=== PATIENT | male | born 1960 | race African-American/Black ===

== ENCOUNTER 2022-11-01 21:34 | Observation (INO) | payer OTHER ==
[2022-11-01 21:52] VITALS: BMI 25.8
[2022-11-01] MEDS ORDERED: LACTATED RINGERS SOLUTION 1000 ML INFUS.BAG IV ONE (21:58)
[2022-11-01] MEDS ORDERED: SODIUM CHLORIDE 0.9% 1000 ML INFUS.BAG IV ONE (21:58)
[2022-11-01 22:40] LABS: HEMATOCRIT 39.1 % (35.4-49); HEMOGLOBIN 13.1 GM/dL (11.7-16.9); MCH 29.3 pg (25.7-33.7); MCHC 33.6 g/dl (32.0-35.9); MEAN CELL VOLUME 87.1 fl (80-96); MEAN PLT VOLUME 7.9 fl (7.5-11.1); PLATELET COUNT 344 10^3/uL (134-434); RBC 4.49 M/mm3 (4.00-5.60); RDW 18.1 % (11.9-15.9); WHITE BLOOD COUNT 7.2 K/mm3 (4.0-10.0)
[2022-11-01 22:43] LABS: INR 1.17 (0.83-1.09); PROTHROMBIN TIME (PATIENT) 13.5 SEC (9.7-13.0)
[2022-11-01 22:46] LABS: ACTIVATED PTT 85.6 SECONDS (25.2-36.5)
[2022-11-01 23:01] LABS: CHLORIDE 113 mmol/L (98-107); POTASSIUM 3.8 mmol/L (3.5-5.1); SODIUM 150 mmol/L (136-145)
[2022-11-01 23:04] LABS: CALCIUM 11.2 mg/dL (8.5-10.1)
[2022-11-01 23:05] LABS: ALBUMIN 3.8 g/dl (3.4-5.0); ANION GAP 4 MMOL/L (8-16); BLOOD UREA NITROGEN 46.4 mg/dL (7-18); CO2 33 mmol/L (21-32)
[2022-11-01 23:08] LABS: CREATININE 1.5 mg/dL (0.55-1.3); SGOT/AST 13 U/L (15-37); SGPT/ALT 36 U/L (13-61)
[2022-11-01 23:10] LABS: BILIRUBIN,TOTAL 0.4 mg/dL (0.2-1); TOT PROT 8.1 g/dl (6.4-8.2)
[2022-11-01 23:11] LABS: ALK PHOS 92 U/L (45-117)
[2022-11-01 23:13] LABS: GLUCOSE,RANDOM 27 mg/dL (74-106)
[2022-11-01] MEDS ORDERED: DEXTROSE 50%-WATER 25 GM/50 ML DISP.SYRIN ONE (23:14)
[2022-11-01] MEDS ORDERED: DEXTROSE 50%-WATER - 25 GM/50 ML VIAL IVPUSH ONE (23:14)
[2022-11-01 23:24] LABS: ANISOCYTOSIS 1+; MACROCYTOSIS 0; PLATELET ESTIMATE NORMAL
[2022-11-02] MEDS ORDERED: DEXTROSE 5%-WATER - 1,000 ML IV SCH (00:45)
[2022-11-02 01:49] LABS: EPI CELLS 9 /uL (0-25.1); HYALINE CASTS 0 /uL (0-3.1); URINE APPEARANCE CLEAR; URINE BACTERIA >9,000 /uL (0-1359); URINE BILIRUBIN NEGATIVE (NEGATIVE); URINE COLOR YELLOW; URINE GLUCOSE (UA) NEGATIVE (NEGATIVE); URINE KETONE TRACE (NEGATIVE); URINE LEUK ESTERASE TRACE (NEGATIVE); URINE NITRITE NEGATIVE (NEGATIVE); URINE PROTEIN 2+ (NEGATIVE); URINE RBC 6 /uL (0-23.9); URINE WBC 54 /uL (0-25.8)
[2022-11-02 06:44] LABS: BASO % 1.1 % (0-2.0); EOS % 0.9 % (0-4.5); HEMATOCRIT 40.9 % (35.4-49); HEMOGLOBIN 13.6 GM/dL (11.7-16.9); LYMPH % 41.9 % (8-40); MCH 29.4 pg (25.7-33.7); MCHC 33.2 g/dl (32.0-35.9); MEAN CELL VOLUME 88.7 fl (80-96); MEAN PLT VOLUME 7.9 fl (7.5-11.1); MONO % 8.3 % (3.8-10.2); NEUT % 47.8 % (42.8-82.8); PLATELET COUNT 264 10^3/uL (134-434); RBC 4.61 M/mm3 (4.00-5.60); WHITE BLOOD COUNT 3.4 K/mm3 (4.0-10.0)
[2022-11-02 06:56] LABS: POTASSIUM 4.1 mmol/L (3.5-5.1)
[2022-11-02 07:02] LABS: ALBUMIN 3.9 g/dl (3.4-5.0); BLOOD UREA NITROGEN 44.2 mg/dL (7-18); CALCIUM 10.8 mg/dL (8.5-10.1)
[2022-11-02 07:04] LABS: CREATININE 1.5 mg/dL (0.55-1.3)
[2022-11-02 07:06] LABS: BILIRUBIN,TOTAL 0.5 mg/dL (0.2-1); TOT PROT 8.4 g/dl (6.4-8.2)
[2022-11-02 09:10] VITALS: RESP 18
[2022-11-02] MEDS: HEPARIN NA (PORCINE) 5,000 UNITS/ML 1ML VIAL SQ SCH ×2 (09:17→22:30)
[2022-11-02] MEDS ORDERED: TIMOLOL MALEATE 0.5% GFS OPHTHALMIC SOLN 5 ML BOTTLE OU SCH (10:00)
[2022-11-02] MEDS ORDERED: SODIUM CHLORIDE 0.45% 1,000 ML IV SCH (15:15)
[2022-11-02 17:15] VITALS: TEMP 98.2
[2022-11-02] MEDS ORDERED: LATANOPROST 0.005% OPHTH SOLN 2.5ML BOTTLE OU SCH (22:00)
[2022-11-02 23:53] VITALS: BP 117/68; PULSE 67
== END 2022-11-02 23:00 ==
LOC: JER 21:34 → JERBED 21:52 → UNDOADMOB 21:52 → INTOOBSV 21:52 → J4S 11-02 03:15 → JERBED 11-02 03:15 → J4S 11-02 11:48
PROVIDERS: ADMIT Internal Medicine; ATTEND Internal Medicine
PROC: 3E0337Z Introduction of Electrolytic and Water Balance Substance into Peripheral Vein, Percutaneous Approach (ICD-10-PCS; principal; 2022-11-02)
PROC: 0DP64UZ Removal of Feeding Device from Stomach, Percutaneous Endoscopic Approach (ICD-10-PCS; 2022-11-02)
PROC: 0DH64UZ Insertion of Feeding Device into Stomach, Percutaneous Endoscopic Approach (ICD-10-PCS; 2022-11-02)
DX: Z43.1 Encounter for attention to gastrostomy (principal); F01.50 Vascular dementia, unspecified severity, without behavioral disturbance, psychotic disturbance, mood disturbance, and anxiety; E11.9 Type 2 diabetes mellitus without complications; E78.5 Hyperlipidemia, unspecified; I21.4 Non-ST elevation (NSTEMI) myocardial infarction; E83.52 Hypercalcemia; E87.0 Hyperosmolality and hypernatremia
CPT/HCPCS: 0241U-QW; 36415; 49440; 71045-TC-FY; 74018-TC-FY; 80053; 81003; 82436; 82962; 83930; 84133; 84300; 84443; 85025; 85610; 85730; 86850; 86900; 86901; 87086; 87186; 93005; 93010; 96361; 96365; 96372; 96375; 99285-25; C1769; C1887; G0378; J1644

== ENCOUNTER 2023-07-02 17:10 | Inpatient (IN) | payer OTHER ==
[2023-07-02 18:40] LABS: BASO % 0.2 % (0-2.0); EOS % 0.5 % (0-4.5); HEMATOCRIT 42.1 % (35.4-49); HEMOGLOBIN 13.6 GM/dL (11.7-16.9); LYMPH % 10.4 % (8-40); MCH 29.1 pg (25.7-33.7); MCHC 32.2 g/dl (32.0-35.9); MEAN CELL VOLUME 90.2 fl (80-96); MEAN PLT VOLUME 9.2 fl (7.5-11.1); MONO % 13.2 % (3.8-10.2); NEUT % 75.7 % (42.8-82.8); PLATELET COUNT 236 10^3/uL (134-434); RBC 4.67 M/mm3 (4.00-5.60); RDW 14.2 % (11.9-15.9); WHITE BLOOD COUNT 8.6 K/mm3 (4.0-10.0)
[2023-07-02] MEDS: LACTATED RINGERS SOLUTION 1000 ML INFUS.BAG IV ONE ×2 (18:44→18:59)
[2023-07-02 18:46] LABS: INR 1.17 (0.83-1.09); PROTHROMBIN TIME (PATIENT) 13.6 SEC (9.7-13.0)
[2023-07-02 18:47] LABS: VENOUS BASE EXCESS -1.9 mmol/L (-2-2); VENOUS O2 SATURATION 37.5 % (70-80); VENOUS PCO2 50.2 mmHg (38-52); VENOUS PH 7.315 (7.310-7.410)
[2023-07-02 18:49] LABS: ACTIVATED PTT 60.9 SECONDS (25.2-36.5)
[2023-07-02] MEDS: SODIUM CHLORIDE 0.9% 500 ML INFUS.BAG IV ONE (18:59)
[2023-07-02 19:01] LABS: CHLORIDE 122 mmol/L (98-107); POTASSIUM 4.7 mmol/L (3.5-5.1)
[2023-07-02] MEDS ORDERED: PIPERACILLIN/TAZOB 3.375 GM 3.375 GM/50 ML BAG IVPB ONE (19:01)
[2023-07-02 19:03] LABS: CALCIUM 10.4 mg/dL (8.5-10.1)
[2023-07-02 19:04] LABS: ALBUMIN 3.5 g/dl (3.4-5.0); CO2 28 mmol/L (21-32); GLUCOSE,RANDOM 70 mg/dL (74-106)
[2023-07-02 19:07] LABS: SGOT/AST 41 U/L (15-37); SGPT/ALT 44 U/L (13-61)
[2023-07-02 19:08] LABS: BILIRUBIN,TOTAL 0.3 mg/dL (0.2-1)
[2023-07-02 19:09] LABS: TOT PROT 7.7 g/dl (6.4-8.2)
[2023-07-02 19:10] LABS: ALK PHOS 126 U/L (45-117)
[2023-07-02] MEDS: PIPERACILLIN/TAZOB 3.375 GM 3.375 GM in DEXTROSE 5%-WATER - 50 ML IVPB ONE (19:15)
[2023-07-02 19:18] LABS: ANION GAP 13 mmol/L (4-13); BLOOD UREA NITROGEN 184.9 mg/dL (7-18); CREATININE 9.1 mg/dL (0.55-1.3); LACTIC ACID 2.8 mmol/L (0.4-2.0); SODIUM 163 mmol/L (136-145)
[2023-07-02] MEDS ORDERED: VANCOMYCIN 1 GRAM (PRE-DOCKED) 1,000 MG/250 ML BAG IVPB ONE (19:47)
[2023-07-02] MEDS: DEXTROSE 5%-0.45% SALINE 1,000 ML IV SCH (20:20)
[2023-07-02] MEDS: VANCOMYCIN 1,000 MG in DEXTROSE 5%-WATER - 250 ML IVPB ONE (20:20)
[2023-07-02] MEDS: SODIUM CHLORIDE 0.45% 1,000 ML IV SCH (20:27)
[2023-07-03] MEDS ORDERED: SODIUM PHOSPHATE/NA BIPHOS 133 ML ENEMA PR PRN (05:51)
[2023-07-03] MEDS ORDERED: PIPERACILLIN/TAZOB 3.375 GM 3.375 GM/50 ML BAG IVPB ONE (05:54)
[2023-07-03] MEDS: PIPERACILLIN/TAZOB 3.375 GM 3.375 GM in DEXTROSE 5%-WATER - 50 ML IVPB ONE (06:10)
[2023-07-03 06:56] LABS: HEMATOCRIT 34.8 % (35.4-49); HEMOGLOBIN 11.3 GM/dL (11.7-16.9); MCH 29.7 pg (25.7-33.7); MCHC 32.5 g/dl (32.0-35.9); MEAN CELL VOLUME 91.4 fl (80-96); MEAN PLT VOLUME 9.7 fl (7.5-11.1); PLATELET COUNT 187 10^3/uL (134-434); RBC 3.81 M/mm3 (4.00-5.60); RDW 14.4 % (11.9-15.9); WHITE BLOOD COUNT 8.6 K/mm3 (4.0-10.0)
[2023-07-03 07:15] LABS: CHLORIDE 123 mmol/L (98-107); POTASSIUM 4.8 mmol/L (3.5-5.1); SODIUM 157 mmol/L (136-145)
[2023-07-03 07:21] LABS: ANION GAP 13 mmol/L (4-13); CALCIUM 9.1 mg/dL (8.5-10.1); CO2 21 mmol/L (21-32); GLUCOSE,RANDOM 168 mg/dL (74-106); MAGNESIUM 3.2 mg/dL (1.8-2.4)
[2023-07-03 07:24] LABS: PHOSPHOROUS 5.9 mg/dL (2.5-4.9)
[2023-07-03 07:51] LABS: BLOOD UREA NITROGEN 176.1 mg/dL (7-18); CREATININE 9.1 mg/dL (0.55-1.3)
[2023-07-03 10:10] LABS: ANISOCYTOSIS 0; HELMET CELLS 0; HOWELL-JOLLY BODIES 0; MACROCYTOSIS 0; OVALOCYTE 0; ROULEAU 0; SICKELED CELLS 0; TARGET CELLS 0; TEAR DROP CELLS 0; TOXIC GRANULATION 0
[2023-07-03 10:52] LABS: EPI CELLS >36 /uL (0-25.1); HYALINE CASTS 9 /uL (0-3.1); PH,URINE 5.5 (5.0-8.0); URINE APPEARANCE CLOUDY; URINE BACTERIA 18 /uL (0-1359); URINE BILIRUBIN NEGATIVE (NEGATIVE); URINE COLOR YELLOW; URINE GLUCOSE (UA) NEGATIVE (NEGATIVE); URINE KETONE NEGATIVE (NEGATIVE); URINE LEUK ESTERASE TRACE (NEGATIVE); URINE NITRITE NEGATIVE (NEGATIVE); URINE PROTEIN 2+ (NEGATIVE); URINE RBC 17 /uL (0-23.9); URINE UROBILINOGEN 0.2 mg/dL (0.2-1.0); URINE WBC 121 /uL (0-25.8)
[2023-07-03] MEDS: TIMOLOL MALEATE 0.5% GFS OPHTHALMIC SOLN 5 ML BOTTLE OU SCH (12:03)
[2023-07-03] MEDS: DEXTROSE 5%-0.45% SALINE 1,000 ML IV SCH (14:00)
[2023-07-03] MEDS: SODIUM CHLORIDE 500 ML IV STA (14:26)
[2023-07-03 16:12] LABS: GAMMA GLUTAMYL TRANSPEPTIDASE 32 U/L (5-85)
[2023-07-03] MEDS: SODIUM CHLORIDE 0.45% 1,000 ML IV SCH (17:11)
[2023-07-03] MEDS ORDERED: PIPERACILLIN/TAZOB 2.25 GM 2.25 GM/50 ML BAG IVPB ONE (17:13)
[2023-07-03] MEDS: PIPERACILLIN/TAZOB 2.25 GM 2.25 GM in DEXTROSE 5%-WATER - 50 ML IVPB SCH (17:24)
[2023-07-03] MEDS ORDERED: PIPERACILLIN/TAZOB 3.375 GM 3.375 GM in DEXTROSE 5%-WATER - 50 ML IVPB SCH (18:00)
[2023-07-03] MEDS ORDERED: PIPERACILLIN/TAZOB 2.25 GM 2.25 GM in DEXTROSE 5%-WATER - 50 ML IVPB SCH (18:00)
[2023-07-03] MEDS: LATANOPROST 0.005% OPHTH SOLN 2.5ML BOTTLE OU SCH (23:10)
[2023-07-04 08:06] LABS: BASO % 0.2 % (0-2.0); EOS % 0.4 % (0-4.5); HEMATOCRIT 31.9 % (35.4-49); HEMOGLOBIN 10.3 GM/dL (11.7-16.9); LYMPH % 13.8 % (8-40); MCH 29.8 pg (25.7-33.7); MCHC 32.2 g/dl (32.0-35.9); MEAN CELL VOLUME 92.6 fl (80-96); MEAN PLT VOLUME 9.3 fl (7.5-11.1); MONO % 12.1 % (3.8-10.2); NEUT % 73.5 % (42.8-82.8); PLATELET COUNT 154 10^3/uL (134-434); RBC 3.45 M/mm3 (4.00-5.60); RDW 14.5 % (11.9-15.9)
[2023-07-04 08:13] LABS: CHLORIDE 122 mmol/L (98-107); SODIUM 155 mmol/L (136-145)
[2023-07-04 08:16] LABS: ANION GAP 10 mmol/L (4-13); CALCIUM 8.4 mg/dL (8.5-10.1); CO2 23 mmol/L (21-32); GLUCOSE,RANDOM 360 mg/dL (74-106)
[2023-07-04 08:19] LABS: SGOT/AST 84 U/L (15-37); SGPT/ALT 57 U/L (13-61)
[2023-07-04 08:21] LABS: BILIRUBIN,TOTAL 0.4 mg/dL (0.2-1)
[2023-07-04 08:26] LABS: ALBUMIN 2.4 g/dl (3.4-5.0); ALK PHOS 89 U/L (45-117); BLOOD UREA NITROGEN 163.5 mg/dL (7-18); CREATININE 8.8 mg/dL (0.55-1.3)
[2023-07-04] MEDS: SODIUM CHLORIDE 0.45% 1,000 ML IV SCH (13:01)
[2023-07-04] MEDS: AMINO ACIDS 4.25%/D5W 1,000 ML IV SCH (13:15)
[2023-07-05 12:27] LABS: HEMATOCRIT 32.8 % (35.4-49); HEMOGLOBIN 10.7 GM/dL (11.7-16.9); MCH 29.8 pg (25.7-33.7); MCHC 32.5 g/dl (32.0-35.9); MEAN CELL VOLUME 91.6 fl (80-96); MEAN PLT VOLUME 9.2 fl (7.5-11.1); PLATELET COUNT 137 10^3/uL (134-434); RBC 3.58 M/mm3 (4.00-5.60); WHITE BLOOD COUNT 6.6 K/mm3 (4.0-10.0)
[2023-07-05 12:45] LABS: CHLORIDE 123 mmol/L (98-107); POTASSIUM 3.6 mmol/L (3.5-5.1); SODIUM 152 mmol/L (136-145)
[2023-07-05 12:47] LABS: CALCIUM 7.8 mg/dL (8.5-10.1)
[2023-07-05 12:48] LABS: ALBUMIN 2.3 g/dl (3.4-5.0); ANION GAP 9 mmol/L (4-13); CO2 20 mmol/L (21-32); GLUCOSE,RANDOM 337 mg/dL (74-106)
[2023-07-05 12:51] LABS: SGOT/AST 75 U/L (15-37); SGPT/ALT 67 U/L (13-61)
[2023-07-05 12:52] LABS: BILIRUBIN,TOTAL 0.3 mg/dL (0.2-1)
[2023-07-05 12:54] LABS: ALK PHOS 89 U/L (45-117)
[2023-07-05 12:55] LABS: BLOOD UREA NITROGEN 149.6 mg/dL (7-18); CREATININE 7.8 mg/dL (0.55-1.3)
[2023-07-05] MEDS: SODIUM CHLORIDE 0.45% 1,000 ML IV SCH (16:14)
[2023-07-06 12:21] LABS: BASO % 0.2 % (0-2.0); EOS % 1.7 % (0-4.5); HEMATOCRIT 31.9 % (35.4-49); HEMOGLOBIN 10.5 GM/dL (11.7-16.9); LYMPH % 15.4 % (8-40); MCH 30.1 pg (25.7-33.7); MCHC 33.1 g/dl (32.0-35.9); MEAN CELL VOLUME 90.8 fl (80-96); MEAN PLT VOLUME 8.6 fl (7.5-11.1); MONO % 13.2 % (3.8-10.2); NEUT % 69.5 % (42.8-82.8); PLATELET COUNT 137 10^3/uL (134-434); RBC 3.51 M/mm3 (4.00-5.60); RDW 13.9 % (11.9-15.9); WHITE BLOOD COUNT 5.2 K/mm3 (4.0-10.0)
[2023-07-06 12:38] LABS: CHLORIDE 124 mmol/L (98-107); POTASSIUM 3.3 mmol/L (3.5-5.1); SODIUM 153 mmol/L (136-145)
[2023-07-06 12:41] LABS: ALBUMIN 2.4 g/dl (3.4-5.0); ANION GAP 6 mmol/L (4-13); CALCIUM 8.3 mg/dL (8.5-10.1); CO2 23 mmol/L (21-32); GLUCOSE,RANDOM 270 mg/dL (74-106)
[2023-07-06 12:44] LABS: CREATININE 6.1 mg/dL (0.55-1.3); SGPT/ALT 70 U/L (13-61)
[2023-07-06 12:45] LABS: SGOT/AST 68 U/L (15-37)
[2023-07-06 12:46] LABS: BILIRUBIN,TOTAL 0.3 mg/dL (0.2-1); TOT PROT 6.3 g/dl (6.4-8.2)
[2023-07-06 12:47] LABS: ALK PHOS 86 U/L (45-117)
[2023-07-06 13:11] LABS: BLOOD UREA NITROGEN 126.4 mg/dL (7-18)
[2023-07-06] MEDS: KCL 10 MEQ IVPB 10 MEQ/100 ML INFUS.BAG IVPB SCH (13:50)
[2023-07-06] MEDS: SODIUM CHLORIDE 0.45% 1,000 ML IV SCH (14:18)
[2023-07-06] MEDS: POTASSIUM CHLORIDE 10 MEQ in AMINO ACIDS 4.25%/D5W 1,000 ML IV SCH (15:09)
[2023-07-07 08:20] LABS: BASO % 0.2 % (0-2.0); EOS % 2.2 % (0-4.5); HEMATOCRIT 32.7 % (35.4-49); HEMOGLOBIN 10.9 GM/dL (11.7-16.9); LYMPH % 20.2 % (8-40); MCHC 33.2 g/dl (32.0-35.9); MEAN CELL VOLUME 90.4 fl (80-96); MEAN PLT VOLUME 9.2 fl (7.5-11.1); MONO % 13.2 % (3.8-10.2); NEUT % 64.2 % (42.8-82.8); PLATELET COUNT 156 10^3/uL (134-434); RBC 3.62 M/mm3 (4.00-5.60)
[2023-07-07 08:33] LABS: CHLORIDE 123 mmol/L (98-107); POTASSIUM 3.6 mmol/L (3.5-5.1); SODIUM 152 mmol/L (136-145)
[2023-07-07 08:37] LABS: CALCIUM 8.5 mg/dL (8.5-10.1)
[2023-07-07 08:38] LABS: ALBUMIN 2.5 g/dl (3.4-5.0); ANION GAP 7 mmol/L (4-13); CO2 21 mmol/L (21-32); GLUCOSE,RANDOM 279 mg/dL (74-106)
[2023-07-07 08:41] LABS: CREATININE 5.2 mg/dL (0.55-1.3); SGOT/AST 54 U/L (15-37); SGPT/ALT 68 U/L (13-61)
[2023-07-07 08:42] LABS: BILIRUBIN,TOTAL 0.2 mg/dL (0.2-1)
[2023-07-07 08:44] LABS: ALK PHOS 86 U/L (45-117); BLOOD UREA NITROGEN 110.6 mg/dL (7-18); TOT PROT 6.4 g/dl (6.4-8.2)
[2023-07-07] MEDS: INSULIN ASPART SLIDING SCALE (NOVOLOG) 1 VIAL SQ SCH (11:26)
[2023-07-07] MEDS: POTASSIUM CHLORIDE 10 MEQ in AMINO ACIDS 4.25%/D5W 1,000 ML IV SCH (13:37)
[2023-07-08 08:47] LABS: BASO % 0.1 % (0-2.0); EOS % 1.8 % (0-4.5); HEMATOCRIT 32.5 % (35.4-49); HEMOGLOBIN 11.1 GM/dL (11.7-16.9); LYMPH % 21.7 % (8-40); MCH 30.3 pg (25.7-33.7); MCHC 34.1 g/dl (32.0-35.9); MEAN CELL VOLUME 88.8 fl (80-96); MEAN PLT VOLUME 8.5 fl (7.5-11.1); MONO % 10.1 % (3.8-10.2); NEUT % 66.3 % (42.8-82.8); PLATELET COUNT 165 10^3/uL (134-434); RBC 3.66 M/mm3 (4.00-5.60); RDW 13.5 % (11.9-15.9); WHITE BLOOD COUNT 5.3 K/mm3 (4.0-10.0)
[2023-07-08 09:13] LABS: POTASSIUM 3.5 mmol/L (3.5-5.1)
[2023-07-08 09:15] LABS: CALCIUM 8.3 mg/dL (8.5-10.1)
[2023-07-08 09:16] LABS: ALBUMIN 2.6 g/dl (3.4-5.0); BLOOD UREA NITROGEN 100.1 mg/dL (7-18)
[2023-07-08 09:19] LABS: CREATININE 4.3 mg/dL (0.55-1.3)
[2023-07-08 09:21] LABS: BILIRUBIN,TOTAL 0.2 mg/dL (0.2-1); TOT PROT 6.4 g/dl (6.4-8.2)
[2023-07-08 14:00] VITALS: BMI 17.5
[2023-07-10 09:51] LABS: POTASSIUM 3.7 mmol/L (3.5-5.1)
[2023-07-10 09:54] LABS: ALBUMIN 2.9 g/dl (3.4-5.0); BLOOD UREA NITROGEN 83.3 mg/dL (7-18); CALCIUM 9.3 mg/dL (8.5-10.1)
[2023-07-10 09:57] LABS: CREATININE 3.7 mg/dL (0.55-1.3)
[2023-07-10 09:59] LABS: BILIRUBIN,TOTAL 0.2 mg/dL (0.2-1); TOT PROT 6.9 g/dl (6.4-8.2)
[2023-07-10] MEDS: DEXTROSE 5%-WATER - 1,000 ML IV SCH (14:06)
[2023-07-13 06:50] VITALS: RESP 18
[2023-07-13 08:31] LABS: POTASSIUM 3.5 mmol/L (3.5-5.1)
[2023-07-13 08:45] LABS: ALBUMIN 2.8 g/dl (3.4-5.0); CREATININE 2.9 mg/dL (0.55-1.3); TOT PROT 7.1 g/dl (6.4-8.2)
[2023-07-13 08:47] LABS: BILIRUBIN,TOTAL 0.4 mg/dL (0.2-1)
[2023-07-13 08:48] LABS: BLOOD UREA NITROGEN 49.3 mg/dL (7-18); CALCIUM 9.3 mg/dL (8.5-10.1)
[2023-07-13 10:20] VITALS: BP 112/74; PULSE 74; TEMP 97.5
== END 2023-07-13 14:16 | DRG 720 ==
LOC: JER 17:10 → JERBED 19:58 → J4S 07-03 21:16
PROVIDERS: ADMIT Internal Medicine; ATTEND Family Medicine
DX: A41.89 Other specified sepsis (principal); R53.2 Functional quadriplegia; E43 Unspecified severe protein-calorie malnutrition; E11.9 Type 2 diabetes mellitus without complications; F01.50 Vascular dementia, unspecified severity, without behavioral disturbance, psychotic disturbance, mood disturbance, and anxiety; E87.20 Acidosis, unspecified; N17.9 Acute kidney failure, unspecified; B97.4 Respiratory syncytial virus as the cause of diseases classified elsewhere; H40.9 Unspecified glaucoma; E78.5 Hyperlipidemia, unspecified; K80.20 Calculus of gallbladder without cholecystitis without obstruction; E87.0 Hyperosmolality and hypernatremia; I25.10 Atherosclerotic heart disease of native coronary artery without angina pectoris; N40.0 Benign prostatic hyperplasia without lower urinary tract symptoms; Z68.1 Body mass index [BMI] 19.9 or less, adult; I10 Essential (primary) hypertension; R64 Cachexia; I25.2 Old myocardial infarction; R68.0 Hypothermia, not associated with low environmental temperature; R41.82 Altered mental status, unspecified
CPT/HCPCS: 0241U-QW; 36415; 71045-TC-FY; 76705-TC; 76775-TC; 80048; 80053; 81003; 82550; 82553; 82803; 82962; 82977; 83516; 83605; 83735; 84100; 84443; 84484; 85025; 85027; 85610; 85730; 86038; 86704; 86803; 86850; 86900; 86901; 87040; 87086; 87340; 87517; 87635; 93005; 93010; 97161-GP; 99285-25

== ENCOUNTER 2023-09-06 10:56 | Inpatient (IN) | payer OTHER ==
[2023-09-06 12:01] LABS: BASO % 0.5 % (0-2.0); EOS % 5.3 % (0-4.5); HEMATOCRIT 19.1 % (35.4-49); LYMPH % 28.4 % (8-40); MCH 29.3 pg (25.7-33.7); MCHC 31.4 g/dl (32.0-35.9); MEAN CELL VOLUME 93.4 fl (80-96); MEAN PLT VOLUME 9.3 fl (7.5-11.1); NEUT % 53.8 % (42.8-82.8); PLATELET COUNT 132 10^3/uL (134-434); RBC 2.05 M/mm3 (4.00-5.60); RDW 15.3 % (11.9-15.9); WHITE BLOOD COUNT 4.2 K/mm3 (4.0-10.0)
[2023-09-06 12:05] LABS: INR 1.15 (0.83-1.09); PROTHROMBIN TIME (PATIENT) 13.3 SEC (9.7-13.0)
[2023-09-06 12:08] LABS: ACTIVATED PTT 45.3 SECONDS (25.2-36.5)
[2023-09-06 12:22] LABS: IRON SERUM 38 ug/dL (50-175); TOTAL IRON BINDING CAPACITY 200 ug/dL (250-450)
[2023-09-06 12:30] LABS: ALBUMIN 2.4 g/dl (3.4-5.0); CALCIUM 8.3 mg/dL (8.5-10.1)
[2023-09-06 12:31] LABS: BLOOD UREA NITROGEN 57.6 mg/dL (7-18)
[2023-09-06 12:34] LABS: CREATININE 1.5 mg/dL (0.55-1.3)
[2023-09-06 12:35] LABS: BILIRUBIN,TOTAL 0.2 mg/dL (0.2-1); TOT PROT 5.9 g/dl (6.4-8.2)
[2023-09-07 09:03] LABS: HEMATOCRIT 28.4 % (35.4-49); HEMOGLOBIN 9.4 GM/dL (11.7-16.9); MCH 29.8 pg (25.7-33.7); MCHC 33.2 g/dl (32.0-35.9); MEAN CELL VOLUME 89.8 fl (80-96); MEAN PLT VOLUME 9.2 fl (7.5-11.1); PLATELET COUNT 160 10^3/uL (134-434); RBC 3.16 M/mm3 (4.00-5.60); RDW 15.2 % (11.9-15.9); WHITE BLOOD COUNT 5.3 K/mm3 (4.0-10.0)
[2023-09-07 09:22] LABS: POTASSIUM 3.8 mmol/L (3.5-5.1)
[2023-09-07 09:34] LABS: ALBUMIN 2.6 g/dl (3.4-5.0); CALCIUM 8.8 mg/dL (8.5-10.1)
[2023-09-07 09:35] LABS: MAGNESIUM 2.3 mg/dL (1.8-2.4)
[2023-09-07 09:37] LABS: CREATININE 1.5 mg/dL (0.55-1.3)
[2023-09-07 09:39] LABS: BILIRUBIN,TOTAL 0.6 mg/dL (0.2-1); TOT PROT 6.3 g/dl (6.4-8.2)
[2023-09-07 10:18] LABS: ANISOCYTOSIS 0; HELMET CELLS 0; HOWELL-JOLLY BODIES 0; MACROCYTOSIS 0; OVALOCYTE 0; ROULEAU 0; SICKELED CELLS 0; TARGET CELLS 0; TEAR DROP CELLS 0; TOXIC GRANULATION 0
[2023-09-07 14:45] VITALS: BMI 19.1
[2023-09-07] MEDS: D5-1/2NS+20 MEQ KCL - 20 MEQ/1,000 ML INFUS.BAG IV SCH (15:46)
[2023-09-07] MEDS: LATANOPROST 0.005% OPHTH SOLN 2.5ML BOTTLE OU SCH (23:01)
[2023-09-08 08:30] LABS: BASO % 0.6 % (0-2.0); EOS % 4.4 % (0-4.5); HEMATOCRIT 29.2 % (35.4-49); HEMOGLOBIN 9.4 GM/dL (11.7-16.9); LYMPH % 29.7 % (8-40); MCH 29.8 pg (25.7-33.7); MCHC 32.2 g/dl (32.0-35.9); MEAN CELL VOLUME 92.5 fl (80-96); MEAN PLT VOLUME 8.8 fl (7.5-11.1); MONO % 11.8 % (3.8-10.2); NEUT % 53.5 % (42.8-82.8); PLATELET COUNT 179 10^3/uL (134-434); RBC 3.15 M/mm3 (4.00-5.60); RDW 15.9 % (11.9-15.9)
[2023-09-08 08:47] LABS: POTASSIUM 4.4 mmol/L (3.5-5.1)
[2023-09-08 08:49] LABS: CALCIUM 8.5 mg/dL (8.5-10.1)
[2023-09-08 08:50] LABS: ALBUMIN 2.5 g/dl (3.4-5.0); BLOOD UREA NITROGEN 40.6 mg/dL (7-18)
[2023-09-08 08:53] LABS: CREATININE 1.4 mg/dL (0.55-1.3)
[2023-09-08 08:54] LABS: BILIRUBIN,TOTAL 0.3 mg/dL (0.2-1)
[2023-09-08 08:55] LABS: TOT PROT 6.3 g/dl (6.4-8.2)
[2023-09-08] MEDS ORDERED: IOHEXOL (OMNIPAQUE PO) 12 MG/ML - 500 ML BOTTLE PO ONE (09:43)
[2023-09-08] MEDS: TIMOLOL MALEATE 0.5% GFS OPHTHALMIC SOLN 5 ML BOTTLE OU SCH (12:23)
[2023-09-09 10:07] LABS: BASO % 0.5 % (0-2.0); EOS % 3.1 % (0-4.5); HEMATOCRIT 29.4 % (35.4-49); HEMOGLOBIN 9.6 GM/dL (11.7-16.9); LYMPH % 25.4 % (8-40); MCH 29.9 pg (25.7-33.7); MCHC 32.7 g/dl (32.0-35.9); MEAN CELL VOLUME 91.3 fl (80-96); MEAN PLT VOLUME 7.7 fl (7.5-11.1); MONO % 7.8 % (3.8-10.2); NEUT % 63.2 % (42.8-82.8); PLATELET COUNT 215 10^3/uL (134-434); RBC 3.22 M/mm3 (4.00-5.60); RDW 15.6 % (11.9-15.9); WHITE BLOOD COUNT 4.6 K/mm3 (4.0-10.0)
[2023-09-09 10:24] LABS: POTASSIUM 4.5 mmol/L (3.5-5.1)
[2023-09-09 10:41] LABS: ALBUMIN 2.6 g/dl (3.4-5.0)
[2023-09-09 10:42] LABS: BLOOD UREA NITROGEN 29.5 mg/dL (7-18)
[2023-09-09 10:45] LABS: BILIRUBIN,TOTAL 0.3 mg/dL (0.2-1); CREATININE 1.4 mg/dL (0.55-1.3); TOT PROT 6.4 g/dl (6.4-8.2)
[2023-09-09] MEDS: POLYETHYLENE GLYCOL (HEALTHYLAX) 3350 17 GM PACKET GT SCH (22:42)
[2023-09-10 09:59] LABS: BASO % 0.4 % (0-2.0); EOS % 2.9 % (0-4.5); HEMATOCRIT 31.2 % (35.4-49); HEMOGLOBIN 10.2 GM/dL (11.7-16.9); LYMPH % 21.1 % (8-40); MCH 29.9 pg (25.7-33.7); MCHC 32.7 g/dl (32.0-35.9); MEAN CELL VOLUME 91.5 fl (80-96); MEAN PLT VOLUME 8.1 fl (7.5-11.1); NEUT % 69.6 % (42.8-82.8); PLATELET COUNT 229 10^3/uL (134-434); RBC 3.41 M/mm3 (4.00-5.60); RDW 16.4 % (11.9-15.9); WHITE BLOOD COUNT 6.1 K/mm3 (4.0-10.0)
[2023-09-10 10:15] LABS: INR 1.13 (0.83-1.09); PROTHROMBIN TIME (PATIENT) 13.1 SEC (9.7-13.0)
[2023-09-10 10:24] LABS: POTASSIUM 4.6 mmol/L (3.5-5.1)
[2023-09-10] MEDS: TAMSULOSIN HCL 0.4 MG CAP PO SCH (10:26)
[2023-09-10 10:39] LABS: CALCIUM 8.9 mg/dL (8.5-10.1)
[2023-09-10 10:40] LABS: ALBUMIN 2.6 g/dl (3.4-5.0); BLOOD UREA NITROGEN 27.4 mg/dL (7-18); MAGNESIUM 2.1 mg/dL (1.8-2.4)
[2023-09-10 10:41] LABS: BILIRUBIN,DIRECT 0.1 mg/dL (0.0-0.2)
[2023-09-10] MEDS: SERTRALINE HCL 50 MG TABLET (FP) GT SCH (10:42)
[2023-09-10 10:43] LABS: BILIRUBIN,TOTAL 0.4 mg/dL (0.2-1); CREATININE 1.4 mg/dL (0.55-1.3); TOT PROT 6.2 g/dl (6.4-8.2)
[2023-09-10 15:34] VITALS: BP 104/70; PULSE 71; RESP 18; TEMP 97.5
== END 2023-09-10 18:35 | DRG 663 ==
LOC: JER 10:56 → JERBED 12:43 → J8W 14:37 → OBSVTOIN 18:52
PROVIDERS: ADMIT Internal Medicine; ATTEND Internal Medicine
PROC: 30233N1 Transfusion of Nonautologous Red Blood Cells into Peripheral Vein, Percutaneous Approach (ICD-10-PCS; principal; 2023-09-06)
DX: D64.9 Anemia, unspecified (principal); R53.2 Functional quadriplegia; F01.50 Vascular dementia, unspecified severity, without behavioral disturbance, psychotic disturbance, mood disturbance, and anxiety; Z93.1 Gastrostomy status; E11.9 Type 2 diabetes mellitus without complications; E78.5 Hyperlipidemia, unspecified; I10 Essential (primary) hypertension
CPT/HCPCS: 0241U-QW; 36415; 36430; 71045-TC-FY; 74018-TC-FY; 74177-TC; 80053; 80076; 82272; 82550; 82962; 83540; 83550; 83735; 84484; 85025; 85610; 85730; 86850; 86900; 86901; 86922; 93005; 93010; 99285-25; G0378; P9058

== ENCOUNTER 2023-12-05 08:21 | Inpatient (IN) | payer OTHER ==
[2023-12-05] MEDS: SODIUM CHLORIDE 0.9% 500 ML INFUS.BAG IV ONE (09:38)
[2023-12-05] MEDS: PIPERACILLIN/TAZOB 3.375 GM 3.375 GM in DEXTROSE 5%-WATER - 50 ML IVPB ONE (09:39)
[2023-12-05] MEDS ORDERED: PIPERACILLIN/TAZOB 3.375 GM 3.375 GM/50 ML BAG IVPB ONE (09:39)
[2023-12-05 09:41] LABS: HEMOGLOBIN 8.9 GM/dL (11.7-16.9); MCH 27.7 pg (25.7-33.7); MCHC 29.7 g/dl (32.0-35.9); MEAN CELL VOLUME 93.3 fl (80-96); MEAN PLT VOLUME 11.1 fl (7.5-11.1); PLATELET COUNT 95 10^3/uL (134-434); RBC 3.22 M/mm3 (4.00-5.60); RDW 16.5 % (11.9-15.9); WHITE BLOOD COUNT 4.8 K/mm3 (4.0-10.0)
[2023-12-05 09:49] LABS: INR 1.22 (0.83-1.09)
[2023-12-05 09:52] LABS: ACTIVATED PTT 67.2 SECONDS (25.2-36.5)
[2023-12-05 10:02] LABS: CHLORIDE 161 mmol/L (98-107); POTASSIUM 4.4 mmol/L (3.5-5.1)
[2023-12-05 10:04] LABS: CALCIUM 8.6 mg/dL (8.5-10.1)
[2023-12-05 10:05] LABS: ALBUMIN 2.6 g/dl (3.4-5.0); CO2 29 mmol/L (21-32); GLUCOSE,RANDOM 127 mg/dL (74-106); MAGNESIUM 4.1 mg/dL (1.8-2.4)
[2023-12-05 10:08] LABS: CREATININE 3.8 mg/dL (0.55-1.3); PHOSPHOROUS 2.8 mg/dL (2.5-4.9); SGOT/AST 78 U/L (15-37)
[2023-12-05 10:09] LABS: TOT PROT 7.4 g/dl (6.4-8.2)
[2023-12-05 10:10] LABS: ALK PHOS 151 U/L (45-117); BILIRUBIN,TOTAL 0.2 mg/dL (0.2-1); SGPT/ALT 107 U/L (13-61)
[2023-12-05 10:11] LABS: ANISOCYTOSIS 0; MACROCYTOSIS 0
[2023-12-05 10:12] LABS: LACTIC ACID 2.1 mmol/L (0.4-2.0)
[2023-12-05 10:15] LABS: PLATELET ESTIMATE DECREASED
[2023-12-05 10:29] LABS: ANION GAP 2 mmol/L (4-13); BLOOD UREA NITROGEN 161.4 mg/dL (7-18); SODIUM 193 mmol/L (136-145)
[2023-12-05] MEDS ORDERED: VANCOMYCIN 1 GRAM (PRE-DOCKED) 1,000 MG/250 ML BAG IVPB ONE (10:55)
[2023-12-05] MEDS: VANCOMYCIN 1,000 MG in DEXTROSE 5%-WATER - 250 ML IVPB ONE (10:57)
[2023-12-05 11:03] LABS: EPI CELLS 6 /uL (0-25.1); HYALINE CASTS 1 /uL (0-3.1); URINE APPEARANCE CLEAR; URINE BACTERIA 303 /uL (0-1359); URINE BILIRUBIN NEGATIVE (NEGATIVE); URINE COLOR YELLOW; URINE GLUCOSE (UA) 2+ (NEGATIVE); URINE KETONE NEGATIVE (NEGATIVE); URINE LEUK ESTERASE 2+ (NEGATIVE); URINE NITRITE NEGATIVE (NEGATIVE); URINE PROTEIN 2+ (NEGATIVE); URINE RBC 23.3 /uL (0-23.9); URINE WBC 731 /uL (0-25.8)
[2023-12-05] MEDS: SODIUM CHLORIDE 0.45% 1,000 ML IV SCH (12:08)
[2023-12-05] MEDS ORDERED: MIDAZOLAM HCL 2 MG/2 ML SINGLE DOSE VIAL ONE ×2 (12:33→12:48)
[2023-12-05] MEDS: INSULIN ASPART SLIDING SCALE (NOVOLOG) 1 VIAL SQ SCH (12:34)
[2023-12-05] MEDS: MIDAZOLAM HCL 2 MG/2 ML SINGLE DOSE VIAL IVPUSH ONE (12:36)
[2023-12-05] MEDS: DEXMEDETOMIDINE PREMIX 400 MCG/100 ML BAG IVPB SCH (15:02)
[2023-12-05] MEDS: NOREPINEPHRINE BITARTRATE/D5W 8 MG/250 ML BAG IVPB SCH (15:02)
[2023-12-05] MEDS: HEPARIN NA (PORCINE) 5,000 UNITS/ML 1ML VIAL SQ SCH (15:02)
[2023-12-05 16:09] LABS: VENOUS BASE EXCESS -0.2 mmol/L (-2-2); VENOUS O2 SATURATION 70.6 % (70-80); VENOUS PH 7.324 (7.310-7.410)
[2023-12-05 16:50] LABS: ALBUMIN 2.1 g/dl (3.4-5.0); ALK PHOS 125 U/L (45-117); ANION GAP 3 mmol/L (4-13); BILIRUBIN,TOTAL 0.4 mg/dL (0.2-1); CALCIUM 7.7 mg/dL (8.5-10.1); CHLORIDE 157 mmol/L (98-107); CO2 28 mmol/L (21-32); CREATININE 3.4 mg/dL (0.55-1.3); GLUCOSE,RANDOM 209 mg/dL (74-106); MAGNESIUM 3.5 mg/dL (1.8-2.4); PHOSPHOROUS 2.8 mg/dL (2.5-4.9); SGOT/AST 59 U/L (15-37); SGPT/ALT 82 U/L (13-61); SODIUM 188 mmol/L (136-145)
[2023-12-05 17:05] LABS: BLOOD UREA NITROGEN 154.6 mg/dL (7-18)
[2023-12-05] MEDS: PIPERACILLIN/TAZOB 2.25 GM 2.25 GM in DEXTROSE 5%-WATER - 50 ML IVPB SCH (18:35)
[2023-12-05] MEDS: MUPIROCIN 2% TOPICAL OINTMENT FOR DECOLONIZATION NS SCH (21:29)
[2023-12-05] MEDS: CHLORHEXIDINE GLUCONATE 4% CLEANSER FOR DECOLONIZATION TP SCH (21:30)
[2023-12-05] MEDS: LATANOPROST 0.005% OPHTH SOLN 2.5ML BOTTLE OU SCH (21:31)
[2023-12-06 01:16] LABS: CHLORIDE 153 mmol/L (98-107)
[2023-12-06 01:18] LABS: CALCIUM 7.6 mg/dL (8.5-10.1)
[2023-12-06 01:19] LABS: CO2 27 mmol/L (21-32); GLUCOSE,RANDOM 155 mg/dL (74-106)
[2023-12-06 01:22] LABS: CREATININE 3.5 mg/dL (0.55-1.3)
[2023-12-06 01:25] LABS: ANION GAP 1 mmol/L (4-13); BLOOD UREA NITROGEN 135.5 mg/dL (7-18); SODIUM 181 mmol/L (136-145)
[2023-12-06] MEDS: SODIUM CHLORIDE 0.45% 1,000 ML IV SCH (01:48)
[2023-12-06] MEDS ORDERED: VASopressin 40 UNITS/100 ML BAG IV SCH (05:00)
[2023-12-06] MEDS ORDERED: VASopressin 20 UNITS/ML VIAL IV ONE ×2 (05:43→22:59)
[2023-12-06] MEDS: VASopressin 40 UNITS/100 ML BAG IV SCH (05:50)
[2023-12-06 08:19] LABS: HEMATOCRIT 26.3 % (35.4-49); MCH 27.9 pg (25.7-33.7); MCHC 30.5 g/dl (32.0-35.9); MEAN CELL VOLUME 91.3 fl (80-96); MEAN PLT VOLUME 11.4 fl (7.5-11.1); PLATELET COUNT 90 10^3/uL (134-434); RBC 2.89 M/mm3 (4.00-5.60); RDW 16.2 % (11.9-15.9); WHITE BLOOD COUNT 6.4 K/mm3 (4.0-10.0)
[2023-12-06 08:41] LABS: CHLORIDE 152 mmol/L (98-107); POTASSIUM 3.9 mmol/L (3.5-5.1)
[2023-12-06 08:44] LABS: ALBUMIN 2.2 g/dl (3.4-5.0)
[2023-12-06 08:45] LABS: CALCIUM 7.6 mg/dL (8.5-10.1); CO2 25 mmol/L (21-32); GLUCOSE,RANDOM 212 mg/dL (74-106)
[2023-12-06 08:48] LABS: CREATININE 3.4 mg/dL (0.55-1.3); PHOSPHOROUS 3.2 mg/dL (2.5-4.9); SGOT/AST 69 U/L (15-37); SGPT/ALT 81 U/L (13-61)
[2023-12-06 08:50] LABS: BILIRUBIN,TOTAL 0.4 mg/dL (0.2-1); TOT PROT 6.4 g/dl (6.4-8.2)
[2023-12-06 08:51] LABS: ALK PHOS 133 U/L (45-117)
[2023-12-06 08:54] LABS: ANION GAP 1 mmol/L (4-13); BLOOD UREA NITROGEN 129.4 mg/dL (7-18); SODIUM 177 mmol/L (136-145)
[2023-12-06 09:01] LABS: ANISOCYTOSIS 0; MACROCYTOSIS 0
[2023-12-06] MEDS: ASPIRIN 81 MG CHEWABLE TABLETS GT SCH (09:15)
[2023-12-06] MEDS: TIMOLOL MALEATE 0.5% GFS OPHTHALMIC SOLN 5 ML BOTTLE OU SCH (09:19)
[2023-12-06] MEDS ORDERED: TIMOLOL 0.5% OPHTHALMIC SOL 5 ML BOTTLE OU SCH (10:00)
[2023-12-06] MEDS: HYDROCORTISONE SOD SUCCINATE 100 MG/2 ML VIAL IVPB SCH (12:08)
[2023-12-06] MEDS: FLUDROCORTISONE ACETATE 0.1 MG TABLET (FP) PO SCH (12:08)
[2023-12-06] MEDS: SODIUM CHLORIDE 1,000 ML IV STA (12:09)
[2023-12-06] MEDS ORDERED: MAGNESIUM SULF 50% (8.12 MEQ/2 ML-1 GM VIAL) ONE (15:32)
[2023-12-06] MEDS ORDERED: NOREPINEPHRINE BITARTRATE 4 MG/4 ML ML IV ONE (17:19)
[2023-12-06] MEDS: SODIUM CHLORIDE 1,000 ML IV SCH (17:46)
[2023-12-06 20:09] LABS: CHLORIDE 151 mmol/L (98-107)
[2023-12-06 20:11] LABS: CALCIUM 7.7 mg/dL (8.5-10.1)
[2023-12-06 20:12] LABS: CO2 23 mmol/L (21-32); GLUCOSE,RANDOM 207 mg/dL (74-106)
[2023-12-06 20:15] LABS: CREATININE 3.2 mg/dL (0.55-1.3)
[2023-12-06 20:25] LABS: ANION GAP 1 mmol/L (4-13); SODIUM 176 mmol/L (136-145)
[2023-12-06 23:22] LABS: ARTERIAL BLD GAS O2 SATURATION 99.6 % (95-98); ARTERIAL BLOOD GAS BASE EXCESS -6.7 mmol/L (-2-2); ARTERIAL BLOOD GAS PO2 284.9 mmHg (80-100); ARTERIAL BLOOD GAS pH 7.312 (7.350-7.450)
[2023-12-07 08:13] LABS: BASO % 0.1 % (0-2.0); EOS % 0.1 % (0-4.5); HEMATOCRIT 23.3 % (35.4-49); HEMOGLOBIN 7.2 GM/dL (11.7-16.9); LYMPH % 16.2 % (8-40); MCH 27.8 pg (25.7-33.7); MCHC 30.6 g/dl (32.0-35.9); MEAN CELL VOLUME 90.9 fl (80-96); MEAN PLT VOLUME 11.4 fl (7.5-11.1); MONO % 2.8 % (3.8-10.2); NEUT % 80.8 % (42.8-82.8); PLATELET COUNT 80 10^3/uL (134-434); RBC 2.57 M/mm3 (4.00-5.60); RDW 16.4 % (11.9-15.9); WHITE BLOOD COUNT 7.7 K/mm3 (4.0-10.0)
[2023-12-07 10:24] LABS: ALBUMIN 2.4 g/dl (3.4-5.0); ALK PHOS 126 U/L (45-117); ANION GAP 15 mmol/L (4-13); BILIRUBIN,TOTAL 0.4 mg/dL (0.2-1); BLOOD UREA NITROGEN 120.9 mg/dL (7-18); CALCIUM 8.1 mg/dL (8.5-10.1); CHLORIDE 144 mmol/L (98-107); CO2 19 mmol/L (21-32); CREATININE 3.2 mg/dL (0.55-1.3); GLUCOSE,RANDOM 242 mg/dL (74-106); POTASSIUM 3.9 mmol/L (3.5-5.1); SGOT/AST 55 U/L (15-37); SGPT/ALT 76 U/L (13-61); SODIUM 178 mmol/L (136-145); TOT PROT 6.5 g/dl (6.4-8.2)
[2023-12-08 06:39] LABS: ARTERIAL BLD GAS O2 SATURATION 98.9 % (95-98); ARTERIAL BLOOD GAS BASE EXCESS -8.9 mmol/L (-2-2); ARTERIAL BLOOD GAS PO2 151.1 mmHg (80-100); ARTERIAL BLOOD GAS pH 7.346 (7.350-7.450)
[2023-12-08 06:51] LABS: BASO % 0.1 % (0-2.0); EOS % 0.1 % (0-4.5); HEMATOCRIT 23.1 % (35.4-49); HEMOGLOBIN 7.1 GM/dL (11.7-16.9); LYMPH % 11.1 % (8-40); MCH 27.7 pg (25.7-33.7); MCHC 30.8 g/dl (32.0-35.9); MEAN CELL VOLUME 89.8 fl (80-96); MEAN PLT VOLUME 10.9 fl (7.5-11.1); MONO % 3.5 % (3.8-10.2); NEUT % 85.2 % (42.8-82.8); PLATELET COUNT 92 10^3/uL (134-434); RBC 2.58 M/mm3 (4.00-5.60); RDW 15.9 % (11.9-15.9); WHITE BLOOD COUNT 9.8 K/mm3 (4.0-10.0)
[2023-12-08 07:07] LABS: CHLORIDE 149 mmol/L (98-107); POTASSIUM 3.3 mmol/L (3.5-5.1)
[2023-12-08 07:11] LABS: ALBUMIN 2.3 g/dl (3.4-5.0); CO2 21 mmol/L (21-32); GLUCOSE,RANDOM 301 mg/dL (74-106)
[2023-12-08 07:13] LABS: MAGNESIUM 2.7 mg/dL (1.8-2.4)
[2023-12-08 07:14] LABS: CREATININE 2.7 mg/dL (0.55-1.3); SGOT/AST 38 U/L (15-37); SGPT/ALT 65 U/L (13-61)
[2023-12-08 07:15] LABS: BILIRUBIN,TOTAL 0.4 mg/dL (0.2-1); TOT PROT 6.6 g/dl (6.4-8.2)
[2023-12-08 07:17] LABS: ALK PHOS 122 U/L (45-117)
[2023-12-08 07:18] LABS: ANION GAP 6 mmol/L (4-13); SODIUM 176 mmol/L (136-145)
[2023-12-08 11:02] LABS: IRON SERUM 76 ug/dL (50-175); TOTAL IRON BINDING CAPACITY 163 ug/dL (250-450)
[2023-12-08 16:53] LABS: ANION GAP 7 mmol/L (4-13); BLOOD UREA NITROGEN 101.1 mg/dL (7-18); CALCIUM 8.6 mg/dL (8.5-10.1); CHLORIDE 152 mmol/L (98-107); CO2 18 mmol/L (21-32); CREATININE 2.6 mg/dL (0.55-1.3); GLUCOSE,RANDOM 232 mg/dL (74-106); POTASSIUM 3.6 mmol/L (3.5-5.1); SODIUM 177 mmol/L (136-145)
[2023-12-08] MEDS: INSULIN ASPART SLIDING SCALE (NOVOLOG) 1 VIAL SQ SCH (17:21)
[2023-12-09 06:52] LABS: BASO % 0.1 % (0-2.0); HEMATOCRIT 23.1 % (35.4-49); HEMOGLOBIN 7.2 GM/dL (11.7-16.9); LYMPH % 10.9 % (8-40); MCH 27.8 pg (25.7-33.7); MCHC 31.1 g/dl (32.0-35.9); MEAN CELL VOLUME 89.5 fl (80-96); MEAN PLT VOLUME 10.4 fl (7.5-11.1); MONO % 2.7 % (3.8-10.2); NEUT % 86.3 % (42.8-82.8); PLATELET COUNT 97 10^3/uL (134-434); RBC 2.59 M/mm3 (4.00-5.60); WHITE BLOOD COUNT 7.7 K/mm3 (4.0-10.0)
[2023-12-09 07:09] LABS: CHLORIDE 151 mmol/L (98-107)
[2023-12-09 07:12] LABS: CALCIUM 7.7 mg/dL (8.5-10.1)
[2023-12-09 07:13] LABS: ALBUMIN 2.1 g/dl (3.4-5.0); BLOOD UREA NITROGEN 95.9 mg/dL (7-18); CO2 20 mmol/L (21-32); GLUCOSE,RANDOM 270 mg/dL (74-106); MAGNESIUM 2.3 mg/dL (1.8-2.4)
[2023-12-09 07:16] LABS: CREATININE 2.4 mg/dL (0.55-1.3); SGOT/AST 29 U/L (15-37); SGPT/ALT 52 U/L (13-61)
[2023-12-09 07:17] LABS: BILIRUBIN,TOTAL 0.4 mg/dL (0.2-1); TOT PROT 5.9 g/dl (6.4-8.2)
[2023-12-09 07:19] LABS: ALK PHOS 108 U/L (45-117)
[2023-12-09 08:00] LABS: ANION GAP 7 mmol/L (4-13); SODIUM 179 mmol/L (136-145)
[2023-12-09] MEDS: CEFTRIAXONE 2 GM in SODIUM CHLORIDE 100 ML IVPB SCH (09:15)
[2023-12-09] MEDS: POLYETHYLENE GLYCOL (HEALTHYLAX) 3350 17 GM PACKET GT SCH (09:16)
[2023-12-09] MEDS: KCL 10 MEQ IVPB 10 MEQ/100 ML INFUS.BAG IVPB SCH (09:16)
[2023-12-09] MEDS: MIDODRINE HCL 5 MG TABLET GT SCH (10:11)
[2023-12-09 13:52] VITALS: BMI 18.2
[2023-12-09] MEDS: POTASSIUM CHLORIDE ORAL LIQUID 20 MEQ/15 ML GT ONE (14:49)
[2023-12-09] MEDS ORDERED: hydrOXYzine HCL 100 MG/2 ML VIAL IM PRN (18:27)
[2023-12-09] MEDS ORDERED: hydrOXYzine HCL 50 MG/ML VIAL IM PRN (18:32)
[2023-12-09 21:35] LABS: PHOSPHOROUS 4.5 mg/dL (2.5-4.9)
[2023-12-09 22:30] LABS: SODIUM 177 mmol/L (136-145)
[2023-12-09] MEDS: POTASSIUM CHLORIDE 10 MEQ in SODIUM CHLORIDE 0.45% 1,000 ML IVPB SCH (22:30)
[2023-12-10 06:38] LABS: HEMATOCRIT 25.1 % (35.4-49); HEMOGLOBIN 7.9 GM/dL (11.7-16.9); MCH 27.9 pg (25.7-33.7); MCHC 31.3 g/dl (32.0-35.9); MEAN CELL VOLUME 89.2 fl (80-96); MEAN PLT VOLUME 9.8 fl (7.5-11.1); PLATELET COUNT 117 10^3/uL (134-434); RBC 2.82 M/mm3 (4.00-5.60); WHITE BLOOD COUNT 7.9 K/mm3 (4.0-10.0)
[2023-12-10 06:47] LABS: CHLORIDE 149 mmol/L (98-107); POTASSIUM 3.3 mmol/L (3.5-5.1)
[2023-12-10 06:49] LABS: CALCIUM 7.4 mg/dL (8.5-10.1)
[2023-12-10 06:50] LABS: BLOOD UREA NITROGEN 99.6 mg/dL (7-18); CO2 19 mmol/L (21-32); GLUCOSE,RANDOM 397 mg/dL (74-106); MAGNESIUM 2.2 mg/dL (1.8-2.4)
[2023-12-10 06:53] LABS: CREATININE 2.3 mg/dL (0.55-1.3); PHOSPHOROUS 4.5 mg/dL (2.5-4.9); SGOT/AST 19 U/L (15-37); SGPT/ALT 49 U/L (13-61)
[2023-12-10 06:55] LABS: BILIRUBIN,TOTAL 0.2 mg/dL (0.2-1); TOT PROT 5.9 g/dl (6.4-8.2)
[2023-12-10 06:56] LABS: ALK PHOS 116 U/L (45-117)
[2023-12-10 07:07] LABS: ANION GAP 4 mmol/L (4-13); SODIUM 172 mmol/L (136-145)
[2023-12-10] MEDS: POTASSIUM CHLORIDE ORAL LIQUID 20 MEQ/15 ML GT ONE (09:27)
[2023-12-10] MEDS: MIDODRINE HCL 5 MG TABLET GT SCH (13:45)
[2023-12-10] MEDS: POTASSIUM CHLORIDE ORAL LIQUID 20 MEQ/15 ML PO ONE (19:22)
[2023-12-10 20:31] LABS: CHLORIDE 148 mmol/L (98-107)
[2023-12-10 20:33] LABS: BLOOD UREA NITROGEN 93.2 mg/dL (7-18); CALCIUM 7.6 mg/dL (8.5-10.1); CO2 19 mmol/L (21-32); GLUCOSE,RANDOM 274 mg/dL (74-106)
[2023-12-10 20:36] LABS: CREATININE 2.3 mg/dL (0.55-1.3)
[2023-12-10 20:40] LABS: ANION GAP 6 mmol/L (4-13); POTASSIUM 2.8 mmol/L (3.5-5.1); SODIUM 173 mmol/L (136-145)
[2023-12-10] MEDS: DEXTROSE 5%-WATER - 1,000 ML IV SCH (20:58)
[2023-12-10] MEDS: KCL 20 MEQ PREMIX BAG 20 MEQ/100 ML INFUS.BAG IVPB SCH (22:27)
[2023-12-11] MEDS: DEXTROSE 5%-WATER - 1,000 ML with POTASSIUM CHLORIDE 20 MEQ IV SCH (00:47)
[2023-12-11 07:30] LABS: HEMATOCRIT 23.8 % (35.4-49); HEMOGLOBIN 7.6 GM/dL (11.7-16.9); MEAN CELL VOLUME 87.4 fl (80-96); MEAN PLT VOLUME 10.2 fl (7.5-11.1); PLATELET COUNT 102 10^3/uL (134-434); RBC 2.73 M/mm3 (4.00-5.60); RDW 15.8 % (11.9-15.9); WHITE BLOOD COUNT 7.2 K/mm3 (4.0-10.0)
[2023-12-11 07:33] LABS: CHLORIDE 142 mmol/L (98-107); POTASSIUM 3.6 mmol/L (3.5-5.1)
[2023-12-11 07:35] LABS: ALBUMIN 1.8 g/dl (3.4-5.0); CALCIUM 7.1 mg/dL (8.5-10.1); CO2 20 mmol/L (21-32); MAGNESIUM 2.1 mg/dL (1.8-2.4)
[2023-12-11 07:36] LABS: BLOOD UREA NITROGEN 80.7 mg/dL (7-18)
[2023-12-11 07:38] LABS: CREATININE 1.9 mg/dL (0.55-1.3); SGOT/AST 26 U/L (15-37); SGPT/ALT 46 U/L (13-61)
[2023-12-11 07:39] LABS: PHOSPHOROUS 3.6 mg/dL (2.5-4.9)
[2023-12-11 07:40] LABS: BILIRUBIN,TOTAL 0.2 mg/dL (0.2-1); TOT PROT 5.3 g/dl (6.4-8.2)
[2023-12-11 07:41] LABS: ALK PHOS 110 U/L (45-117)
[2023-12-11 07:42] LABS: ANION GAP 4 mmol/L (4-13); GLUCOSE,RANDOM 445 mg/dL (74-106); SODIUM 166 mmol/L (136-145)
[2023-12-11] MEDS ORDERED: INSULIN ASPART SLIDING SCALE (NOVOLOG) 1 VIAL SQ ONE ×2 (08:20→11:38)
[2023-12-11] MEDS: INSULIN (NOVOLOG) ASPART 100 UNITS/ML 10ML VIAL SQ ONE (08:21)
[2023-12-11] MEDS: POTASSIUM CHLORIDE ORAL LIQUID 20 MEQ/15 ML GT ONE (09:18)
[2023-12-11] MEDS: SODIUM CHLORIDE 0.45% 1,000 ML IV SCH (11:44)
[2023-12-11] MEDS: HYDROCORTISONE SOD SUCCINATE 100 MG/2 ML VIAL IVPB SCH (11:52)
[2023-12-11] MEDS ORDERED: HYDROCORTISONE SOD SUCCINATE 100 MG/2 ML VIAL IVPB SCH (12:00)
[2023-12-11] MEDS: INSULIN ASPART SLIDING SCALE (NOVOLOG) 1 VIAL SQ SCH (13:26)
[2023-12-11 20:08] LABS: CHLORIDE 140 mmol/L (98-107)
[2023-12-11 20:10] LABS: CALCIUM 7.4 mg/dL (8.5-10.1); CO2 21 mmol/L (21-32); GLUCOSE,RANDOM 248 mg/dL (74-106)
[2023-12-11 20:14] LABS: CREATININE 1.9 mg/dL (0.55-1.3)
[2023-12-11 20:15] LABS: ANION GAP 4 mmol/L (4-13); POTASSIUM 2.8 mmol/L (3.5-5.1); SODIUM 165 mmol/L (136-145)
[2023-12-11] MEDS: KCL 20 MEQ PREMIX BAG 20 MEQ/100 ML INFUS.BAG IVPB SCH (21:18)
[2023-12-12 03:02] LABS: N-TERMINAL BNP 1726.2 pg/ml (5-125)
[2023-12-12 03:23] LABS: CHLORIDE 141 mmol/L (98-107); POTASSIUM 3.4 mmol/L (3.5-5.1)
[2023-12-12 03:24] LABS: CALCIUM 7.2 mg/dL (8.5-10.1)
[2023-12-12 03:25] LABS: BLOOD UREA NITROGEN 68.1 mg/dL (7-18); CO2 21 mmol/L (21-32); GLUCOSE,RANDOM 264 mg/dL (74-106)
[2023-12-12 03:28] LABS: CREATININE 1.7 mg/dL (0.55-1.3)
[2023-12-12 03:31] LABS: ANION GAP 3 mmol/L (4-13); SODIUM 164 mmol/L (136-145)
[2023-12-12 06:30] LABS: HEMATOCRIT 24.1 % (35.4-49); HEMOGLOBIN 7.8 GM/dL (11.7-16.9); MCH 27.8 pg (25.7-33.7); MCHC 32.4 g/dl (32.0-35.9); MEAN CELL VOLUME 85.8 fl (80-96); PLATELET COUNT 91 10^3/uL (134-434); RBC 2.81 M/mm3 (4.00-5.60); RDW 15.5 % (11.9-15.9); WHITE BLOOD COUNT 5.6 K/mm3 (4.0-10.0)
[2023-12-12] MEDS: KCL 20 MEQ PREMIX BAG 20 MEQ/100 ML INFUS.BAG IVPB SCH (08:19)
[2023-12-12] MEDS: POTASSIUM CHLORIDE 20 MEQ in DEXTROSE 5%-WATER - 1,000 ML IV SCH (10:48)
[2023-12-12 11:21] LABS: CHLORIDE 140 mmol/L (98-107); POTASSIUM 3.8 mmol/L (3.5-5.1)
[2023-12-12 11:23] LABS: CALCIUM 7.3 mg/dL (8.5-10.1)
[2023-12-12 11:24] LABS: ALBUMIN 1.8 g/dl (3.4-5.0); BLOOD UREA NITROGEN 60.3 mg/dL (7-18); CO2 21 mmol/L (21-32); GLUCOSE,RANDOM 244 mg/dL (74-106)
[2023-12-12 11:27] LABS: CREATININE 1.7 mg/dL (0.55-1.3); SGOT/AST 36 U/L (15-37); SGPT/ALT 57 U/L (13-61)
[2023-12-12 11:29] LABS: BILIRUBIN,TOTAL 0.2 mg/dL (0.2-1)
[2023-12-12 11:30] LABS: ALK PHOS 101 U/L (45-117)
[2023-12-12 11:42] LABS: ANION GAP 3 mmol/L (4-13); SODIUM 163 mmol/L (136-145)
[2023-12-12 13:37] LABS: BASO % 0.1 % (0-2.0); EOS % 0.4 % (0-4.5); HEMATOCRIT 23.1 % (35.4-49); HEMOGLOBIN 7.5 GM/dL (11.7-16.9); LYMPH % 11.7 % (8-40); MCH 27.6 pg (25.7-33.7); MCHC 32.5 g/dl (32.0-35.9); MEAN CELL VOLUME 84.9 fl (80-96); MEAN PLT VOLUME 9.6 fl (7.5-11.1); MONO % 3.5 % (3.8-10.2); NEUT % 84.3 % (42.8-82.8); PLATELET COUNT 94 10^3/uL (134-434); RBC 2.72 M/mm3 (4.00-5.60); RDW 15.6 % (11.9-15.9); WHITE BLOOD COUNT 5.5 K/mm3 (4.0-10.0)
[2023-12-12 18:49] LABS: POTASSIUM 3.7 mmol/L (3.5-5.1)
[2023-12-12 18:51] LABS: ALBUMIN 1.8 g/dl (3.4-5.0); CALCIUM 7.6 mg/dL (8.5-10.1)
[2023-12-12 18:52] LABS: BLOOD UREA NITROGEN 55.8 mg/dL (7-18)
[2023-12-12 18:56] LABS: BILIRUBIN,TOTAL 0.2 mg/dL (0.2-1)
[2023-12-12 19:20] LABS: CREATININE 1.7 mg/dL (0.55-1.3)
[2023-12-12] MEDS: HYDROCORTISONE SOD SUCCINATE 100 MG/2 ML VIAL IVPUSH SCH (21:06)
[2023-12-13 00:57] LABS: CHLORIDE 135 mmol/L (98-107); POTASSIUM 3.3 mmol/L (3.5-5.1); SODIUM 160 mmol/L (136-145)
[2023-12-13 00:59] LABS: ALBUMIN 1.7 g/dl (3.4-5.0); ANION GAP 3 mmol/L (4-13); BLOOD UREA NITROGEN 55.1 mg/dL (7-18); CO2 21 mmol/L (21-32); GLUCOSE,RANDOM 313 mg/dL (74-106)
[2023-12-13 01:02] LABS: CREATININE 1.5 mg/dL (0.55-1.3); SGOT/AST 41 U/L (15-37); SGPT/ALT 59 U/L (13-61)
[2023-12-13 01:03] LABS: TOT PROT 4.8 g/dl (6.4-8.2)
[2023-12-13 01:04] LABS: BILIRUBIN,TOTAL 0.2 mg/dL (0.2-1)
[2023-12-13 01:05] LABS: ALK PHOS 95 U/L (45-117)
[2023-12-13 01:11] LABS: CALCIUM 6.9 mg/dL (8.5-10.1)
[2023-12-13] MEDS: CALCIUM GLUC IN NACL, ISO-OSM 1 GM/50 ML BAG IVPB ONE (01:21)
[2023-12-13] MEDS: KCL 10 MEQ IVPB 10 MEQ/100 ML INFUS.BAG IVPB SCH (01:28)
[2023-12-13 06:44] LABS: BASO % 0.2 % (0-2.0); EOS % 0.9 % (0-4.5); HEMATOCRIT 23.6 % (35.4-49); HEMOGLOBIN 7.6 GM/dL (11.7-16.9); LYMPH % 19.1 % (8-40); MCH 27.6 pg (25.7-33.7); MCHC 32.3 g/dl (32.0-35.9); MEAN CELL VOLUME 85.4 fl (80-96); MEAN PLT VOLUME 10.1 fl (7.5-11.1); MONO % 3.9 % (3.8-10.2); NEUT % 75.9 % (42.8-82.8); PLATELET COUNT 113 10^3/uL (134-434); RBC 2.76 M/mm3 (4.00-5.60); RDW 15.4 % (11.9-15.9); WHITE BLOOD COUNT 6.2 K/mm3 (4.0-10.0)
[2023-12-13 07:03] LABS: POTASSIUM 3.5 mmol/L (3.5-5.1)
[2023-12-13 07:07] LABS: BLOOD UREA NITROGEN 53.4 mg/dL (7-18); CALCIUM 7.6 mg/dL (8.5-10.1)
[2023-12-13 07:08] LABS: ALBUMIN 1.8 g/dl (3.4-5.0); CREATININE 1.6 mg/dL (0.55-1.3); MAGNESIUM 1.8 mg/dL (1.8-2.4)
[2023-12-13 07:11] LABS: PHOSPHOROUS 2.3 mg/dL (2.5-4.9)
[2023-12-13 07:12] LABS: TOT PROT 4.8 g/dl (6.4-8.2)
[2023-12-13 07:16] LABS: BILIRUBIN,TOTAL 0.2 mg/dL (0.2-1)
[2023-12-13] MEDS: POTASSIUM CHLORIDE ORAL LIQUID 20 MEQ/15 ML PO ONE (09:47)
[2023-12-13] MEDS ORDERED: POTASSIUM CHLORIDE 20 MEQ in DEXTROSE 5%-WATER - 1,000 ML IV SCH (10:22)
[2023-12-13] MEDS: MAGNESIUM SULFATE IN WATER 2 GM/50 ML IVPB IVPB ONE (12:14)
[2023-12-13] MEDS: LACTATED RINGERS SOLUTION 1,000 ML/1,000 ML INFUS.BAG IV SCH (12:15)
[2023-12-13] MEDS: NAPH,MB-DB/K PH,MBDB POWDER PACKET GT ONE (12:15)
[2023-12-13 18:17] LABS: HEMATOCRIT 22.3 % (35.4-49); HEMOGLOBIN 7.1 GM/dL (11.7-16.9); MCH 27.2 pg (25.7-33.7); MCHC 32.1 g/dl (32.0-35.9); MEAN CELL VOLUME 84.8 fl (80-96); PLATELET COUNT 137 10^3/uL (134-434); RBC 2.63 M/mm3 (4.00-5.60); RDW 15.4 % (11.9-15.9); WHITE BLOOD COUNT 6.2 K/mm3 (4.0-10.0)
[2023-12-13 18:40] LABS: POTASSIUM 3.5 mmol/L (3.5-5.1)
[2023-12-13 18:43] LABS: BLOOD UREA NITROGEN 46.5 mg/dL (7-18); CALCIUM 7.5 mg/dL (8.5-10.1)
[2023-12-13 18:46] LABS: CREATININE 1.5 mg/dL (0.55-1.3)
[2023-12-13] MEDS: HYDROCORTISONE SOD SUCCINATE 100 MG/2 ML VIAL IVPUSH SCH (21:20)
[2023-12-14 07:18] LABS: HEMATOCRIT 20.6 % (35.4-49); MCH 27.6 pg (25.7-33.7); MCHC 32.6 g/dl (32.0-35.9); MEAN CELL VOLUME 84.6 fl (80-96); MEAN PLT VOLUME 9.7 fl (7.5-11.1); PLATELET COUNT 136 10^3/uL (134-434); RBC 2.44 M/mm3 (4.00-5.60); RDW 15.7 % (11.9-15.9); WHITE BLOOD COUNT 6.8 K/mm3 (4.0-10.0)
[2023-12-14 07:34] LABS: POTASSIUM 3.1 mmol/L (3.5-5.1)
[2023-12-14 07:38] LABS: CALCIUM 7.5 mg/dL (8.5-10.1)
[2023-12-14 07:39] LABS: BLOOD UREA NITROGEN 46.4 mg/dL (7-18)
[2023-12-14 07:42] LABS: CREATININE 1.5 mg/dL (0.55-1.3)
[2023-12-14 07:48] LABS: HEMOGLOBIN 6.7 GM/dL (11.7-16.9)
[2023-12-14] MEDS: POTASSIUM CHLORIDE ORAL LIQUID 20 MEQ/15 ML GT SCH (09:05)
[2023-12-14] MEDS: NAPH,MB-DB/K PH,MBDB POWDER PACKET PO ONE (20:27)
[2023-12-14 20:40] LABS: HEMATOCRIT 23.6 % (35.4-49); HEMOGLOBIN 7.9 GM/dL (11.7-16.9); MCH 28.1 pg (25.7-33.7); MCHC 33.5 g/dl (32.0-35.9); MEAN CELL VOLUME 83.9 fl (80-96); PLATELET COUNT 140 10^3/uL (134-434); RBC 2.82 M/mm3 (4.00-5.60); RDW 15.3 % (11.9-15.9)
[2023-12-14 21:03] LABS: CALCIUM 7.4 mg/dL (8.5-10.1); POTASSIUM 3.1 mmol/L (3.5-5.1)
[2023-12-14 21:05] LABS: BLOOD UREA NITROGEN 40.1 mg/dL (7-18)
[2023-12-14 21:08] LABS: CREATININE 1.4 mg/dL (0.55-1.3); PHOSPHOROUS 2.4 mg/dL (2.5-4.9)
[2023-12-14] MEDS: POTASSIUM PHOSPHATE 15 MM in DEXTROSE 5%-WATER - 250 ML IVPB ONE (23:00)
[2023-12-14] MEDS: POTASSIUM CHLORIDE ORAL LIQUID 20 MEQ/15 ML NGT ONE (23:00)
[2023-12-14] MEDS: POTASSIUM PHOSPHATE 15 MM in SODIUM CHLORIDE 250 ML IVPB ONE (23:22)
[2023-12-15 06:52] LABS: BASO % 0.1 % (0-2.0); HEMATOCRIT 23.5 % (35.4-49); HEMOGLOBIN 7.9 GM/dL (11.7-16.9); LYMPH % 10.9 % (8-40); MCH 28.5 pg (25.7-33.7); MCHC 33.6 g/dl (32.0-35.9); MEAN CELL VOLUME 84.8 fl (80-96); MEAN PLT VOLUME 9.3 fl (7.5-11.1); MONO % 5.9 % (3.8-10.2); NEUT % 82.1 % (42.8-82.8); PLATELET COUNT 149 10^3/uL (134-434); RBC 2.76 M/mm3 (4.00-5.60); RDW 15.3 % (11.9-15.9); WHITE BLOOD COUNT 7.3 K/mm3 (4.0-10.0)
[2023-12-15 07:00] LABS: POTASSIUM 3.6 mmol/L (3.5-5.1)
[2023-12-15 07:05] LABS: CALCIUM 7.4 mg/dL (8.5-10.1)
[2023-12-15 07:06] LABS: BLOOD UREA NITROGEN 37.7 mg/dL (7-18); MAGNESIUM 2.1 mg/dL (1.8-2.4)
[2023-12-15 07:09] LABS: CREATININE 1.3 mg/dL (0.55-1.3)
[2023-12-15 07:44] LABS: PHOSPHOROUS 3.1 mg/dL (2.5-4.9)
[2023-12-15] MEDS: POTASSIUM CHLORIDE ORAL LIQUID 20 MEQ/15 ML GT ONE (07:49)
[2023-12-15] MEDS: ENOXAPARIN NA (PORCINE) 40 MG/0.4 ML DISP.SYRIN SQ SCH (09:19)
[2023-12-15] MEDS: VANCOMYCIN 250 MG/5 ML ORAL SOLUTION (RESTRICTED TO ID ONLY) GT SCH (12:21)
[2023-12-15] MEDS: MIDODRINE HCL 5 MG TABLET GT SCH (13:32)
[2023-12-15 19:01] LABS: CALCIUM 7.3 mg/dL (8.5-10.1); POTASSIUM 3.7 mmol/L (3.5-5.1)
[2023-12-15 19:03] LABS: BLOOD UREA NITROGEN 33.8 mg/dL (7-18)
[2023-12-15 19:06] LABS: CREATININE 1.3 mg/dL (0.55-1.3)
[2023-12-15] MEDS: QUEtiapine FUMARATE 50 MG TABLET PEG SCH (21:12)
[2023-12-15] MEDS: LACTATED RINGERS SOLUTION 1,000 ML/1,000 ML INFUS.BAG IV STA (23:34)
[2023-12-16] MEDS: VASopressin 40 UNITS/100 ML BAG IV SCH (06:17)
[2023-12-16] MEDS: LACTATED RINGERS SOLUTION 1,000 ML/1,000 ML INFUS.BAG IV STA ×2 (06:17→13:00)
[2023-12-16 07:00] LABS: BASO % 0.1 % (0-2.0); EOS % 0.6 % (0-4.5); HEMATOCRIT 23.5 % (35.4-49); HEMOGLOBIN 7.9 GM/dL (11.7-16.9); LYMPH % 11.4 % (8-40); MCH 28.4 pg (25.7-33.7); MCHC 33.6 g/dl (32.0-35.9); MEAN CELL VOLUME 84.5 fl (80-96); MONO % 6.8 % (3.8-10.2); NEUT % 81.1 % (42.8-82.8); PLATELET COUNT 192 10^3/uL (134-434); RBC 2.78 M/mm3 (4.00-5.60); RDW 15.5 % (11.9-15.9); WHITE BLOOD COUNT 7.2 K/mm3 (4.0-10.0)
[2023-12-16 07:12] LABS: POTASSIUM 3.5 mmol/L (3.5-5.1)
[2023-12-16 07:14] LABS: POTASSIUM 3.5 mmol/L (3.5-5.1)
[2023-12-16 07:17] LABS: BLOOD UREA NITROGEN 29.8 mg/dL (7-18); MAGNESIUM 1.8 mg/dL (1.8-2.4)
[2023-12-16 07:19] LABS: ALBUMIN 1.8 g/dl (3.4-5.0); BLOOD UREA NITROGEN 29.9 mg/dL (7-18); CALCIUM 7.2 mg/dL (8.5-10.1); CALCIUM 7.4 mg/dL (8.5-10.1)
[2023-12-16 07:21] LABS: CREATININE 1.2 mg/dL (0.55-1.3)
[2023-12-16 07:22] LABS: BILIRUBIN,TOTAL 0.2 mg/dL (0.2-1); TOT PROT 4.9 g/dl (6.4-8.2)
[2023-12-16] MEDS: POTASSIUM CHLORIDE ORAL LIQUID 20 MEQ/15 ML GT ONE (08:20)
[2023-12-16] MEDS: MAGNESIUM SULFATE IN WATER 2 GM/50 ML IVPB IVPB ONE (08:20)
[2023-12-16] MEDS: INSULIN (LEVEMIR) 100 UNITS/ML UNITS SQ SCH (08:23)
[2023-12-16 09:51] LABS: PHOSPHOROUS 2.5 mg/dL (2.5-4.9)
[2023-12-16] MEDS: LACTATED RINGERS SOLUTION 1,000 ML/1,000 ML INFUS.BAG IV SCH (09:57)
[2023-12-16] MEDS ORDERED: LACTATED RINGERS SOLUTION 1,000 ML/1,000 ML INFUS.BAG IV SCH (15:15)
[2023-12-16] MEDS: SODIUM CHLORIDE 0.45% 1,000 ML IV SCH (16:00)
[2023-12-17] MEDS: VANCOMYCIN ORAL SOLUTION 125 MG/2.5 ML GT SCH (06:07)
[2023-12-17 07:19] LABS: BASO % 0.1 % (0-2.0); EOS % 0.9 % (0-4.5); MCH 28.3 pg (25.7-33.7); MCHC 33.2 g/dl (32.0-35.9); MEAN CELL VOLUME 85.3 fl (80-96); MEAN PLT VOLUME 8.8 fl (7.5-11.1); MONO % 6.4 % (3.8-10.2); NEUT % 78.6 % (42.8-82.8); PLATELET COUNT 189 10^3/uL (134-434); RBC 2.35 M/mm3 (4.00-5.60); RDW 15.3 % (11.9-15.9); WHITE BLOOD COUNT 5.9 K/mm3 (4.0-10.0)
[2023-12-17 07:26] LABS: POTASSIUM 3.5 mmol/L (3.5-5.1)
[2023-12-17 07:28] LABS: BLOOD UREA NITROGEN 21.7 mg/dL (7-18); CALCIUM 7.2 mg/dL (8.5-10.1); MAGNESIUM 1.8 mg/dL (1.8-2.4)
[2023-12-17 07:31] LABS: CREATININE 0.9 mg/dL (0.55-1.3); PHOSPHOROUS 2.2 mg/dL (2.5-4.9)
[2023-12-17 07:35] LABS: HEMOGLOBIN 6.6 GM/dL (11.7-16.9)
[2023-12-17] MEDS: NAPH,MB-DB/K PH,MBDB POWDER PACKET GT ONE ×2 (09:40→21:33)
[2023-12-17] MEDS: LACTATED RINGERS SOLUTION 1,000 ML/1,000 ML INFUS.BAG IV SCH (09:41)
[2023-12-17 12:40] LABS: HEMATOCRIT 22.1 % (35.4-49); HEMOGLOBIN 7.2 GM/dL (11.7-16.9); MCH 28.2 pg (25.7-33.7); MCHC 32.7 g/dl (32.0-35.9); MEAN CELL VOLUME 86.3 fl (80-96); MEAN PLT VOLUME 8.2 fl (7.5-11.1); PLATELET COUNT 211 10^3/uL (134-434); RBC 2.56 M/mm3 (4.00-5.60); WHITE BLOOD COUNT 6.4 K/mm3 (4.0-10.0)
[2023-12-17] MEDS ORDERED: FAMOTIDINE 20 MG/2.5 ML ORAL LIQUID GT SCH (22:00)
[2023-12-18] MEDS ORDERED: VASopressin 20 UNITS/ML VIAL IV ONE (00:47)
[2023-12-18 08:10] LABS: HEMATOCRIT 18.5 % (35.4-49); MCH 28.1 pg (25.7-33.7); MEAN CELL VOLUME 85.2 fl (80-96); MEAN PLT VOLUME 8.7 fl (7.5-11.1); PLATELET COUNT 196 10^3/uL (134-434); RBC 2.18 M/mm3 (4.00-5.60); RDW 16.2 % (11.9-15.9); WHITE BLOOD COUNT 4.8 K/mm3 (4.0-10.0)
[2023-12-18 08:18] LABS: POTASSIUM 3.5 mmol/L (3.5-5.1)
[2023-12-18 08:21] LABS: ALBUMIN 1.7 g/dl (3.4-5.0); BLOOD UREA NITROGEN 19.9 mg/dL (7-18); MAGNESIUM 1.8 mg/dL (1.8-2.4)
[2023-12-18 08:24] LABS: CREATININE 0.8 mg/dL (0.55-1.3); PHOSPHOROUS 2.6 mg/dL (2.5-4.9)
[2023-12-18 08:26] LABS: BILIRUBIN,TOTAL 0.2 mg/dL (0.2-1); TOT PROT 4.7 g/dl (6.4-8.2)
[2023-12-18 08:47] LABS: HEMOGLOBIN 6.1 GM/dL (11.7-16.9)
[2023-12-18] MEDS: PANTOPRAZOLE SODIUM 40 MG VIAL IVPUSH SCH (09:39)
[2023-12-18] MEDS: LACTATED RINGERS SOLUTION 1,000 ML/1,000 ML INFUS.BAG IV SCH (17:21)
[2023-12-18] MEDS: PANTOPRAZOLE SOD 40 MG SUSPENSION PACKET PO SCH (20:17)
[2023-12-19 07:31] LABS: HEMATOCRIT 23.9 % (35.4-49); HEMOGLOBIN 8.2 GM/dL (11.7-16.9); MCH 29.3 pg (25.7-33.7); MCHC 34.6 g/dl (32.0-35.9); MEAN CELL VOLUME 84.7 fl (80-96); MEAN PLT VOLUME 8.1 fl (7.5-11.1); PLATELET COUNT 227 10^3/uL (134-434); POTASSIUM 3.5 mmol/L (3.5-5.1); RBC 2.82 M/mm3 (4.00-5.60); RDW 15.9 % (11.9-15.9); WHITE BLOOD COUNT 5.2 K/mm3 (4.0-10.0)
[2023-12-19 07:32] LABS: BLOOD UREA NITROGEN 19.5 mg/dL (7-18); CALCIUM 7.3 mg/dL (8.5-10.1); MAGNESIUM 1.9 mg/dL (1.8-2.4)
[2023-12-19 07:36] LABS: CREATININE 0.9 mg/dL (0.55-1.3); PHOSPHOROUS 2.3 mg/dL (2.5-4.9)
[2023-12-19 09:25] LABS: ALBUMIN 1.7 g/dl (3.4-5.0)
[2023-12-19] MEDS: NAPH,MB-DB/K PH,MBDB POWDER PACKET PO ONE (09:53)
[2023-12-19] MEDS: INSULIN ASPART SLIDING SCALE (NOVOLOG) 1 VIAL SQ SCH (12:24)
[2023-12-20 09:14] LABS: HEMOGLOBIN 9.3 GM/dL (11.7-16.9); MCH 28.5 pg (25.7-33.7); MEAN CELL VOLUME 86.3 fl (80-96); MEAN PLT VOLUME 7.6 fl (7.5-11.1); PLATELET COUNT 269 10^3/uL (134-434); RBC 3.25 M/mm3 (4.00-5.60); RDW 16.6 % (11.9-15.9); WHITE BLOOD COUNT 3.9 K/mm3 (4.0-10.0)
[2023-12-20 09:29] LABS: POTASSIUM 4.1 mmol/L (3.5-5.1)
[2023-12-20 09:30] LABS: CALCIUM 8.3 mg/dL (8.5-10.1)
[2023-12-20 09:31] LABS: BLOOD UREA NITROGEN 19.9 mg/dL (7-18); MAGNESIUM 2.1 mg/dL (1.8-2.4)
[2023-12-20 09:34] LABS: PHOSPHOROUS 2.4 mg/dL (2.5-4.9)
[2023-12-20 09:36] LABS: BILIRUBIN,TOTAL 0.2 mg/dL (0.2-1); TOT PROT 5.2 g/dl (6.4-8.2)
[2023-12-21] MEDS ORDERED: hydrOXYzine HCL 50 MG/ML VIAL IM PRN (09:12)
[2023-12-21] MEDS: ASPIRIN 81 MG CHEWABLE TABLETS GT SCH (10:20)
[2023-12-21] MEDS: ENOXAPARIN NA (PORCINE) 40 MG/0.4 ML DISP.SYRIN SQ SCH (10:20)
[2023-12-21] MEDS: MIDODRINE HCL 5 MG TABLET GT SCH (10:20)
[2023-12-21] MEDS: LACTATED RINGERS SOLUTION 1,000 ML/1,000 ML INFUS.BAG IV SCH (10:21)
[2023-12-21] MEDS: PANTOPRAZOLE SODIUM 40 MG VIAL IVPUSH SCH (10:21)
[2023-12-21] MEDS: VANCOMYCIN ORAL SOLUTION 125 MG/2.5 ML GT SCH (13:33)
[2023-12-21] MEDS: TIMOLOL MALEATE 0.5% GFS OPHTHALMIC SOLN 5 ML BOTTLE OU SCH (13:37)
[2023-12-21] MEDS ORDERED: CHLORHEXIDINE GLUCONATE 4% CLEANSER FOR DECOLONIZATION TP SCH (22:00)
[2023-12-21] MEDS: LATANOPROST 0.005% OPHTH SOLN 2.5ML BOTTLE OU SCH (23:22)
[2023-12-21] MEDS: QUEtiapine FUMARATE 50 MG TABLET PEG SCH (23:23)
[2023-12-21] MEDS: INSULIN (LEVEMIR) 100 UNITS/ML UNITS SQ SCH (23:23)
[2023-12-22 09:55] LABS: BASO % 0.6 % (0-2.0); EOS % 3.3 % (0-4.5); HEMATOCRIT 26.6 % (35.4-49); HEMOGLOBIN 8.8 GM/dL (11.7-16.9); LYMPH % 27.4 % (8-40); MCH 28.5 pg (25.7-33.7); MEAN CELL VOLUME 86.5 fl (80-96); MEAN PLT VOLUME 7.1 fl (7.5-11.1); MONO % 5.8 % (3.8-10.2); NEUT % 62.9 % (42.8-82.8); PLATELET COUNT 276 10^3/uL (134-434); RBC 3.08 M/mm3 (4.00-5.60); RDW 17.3 % (11.9-15.9); WHITE BLOOD COUNT 3.8 K/mm3 (4.0-10.0)
[2023-12-22 10:14] LABS: POTASSIUM 3.9 mmol/L (3.5-5.1)
[2023-12-22 10:17] LABS: ALBUMIN 1.9 g/dl (3.4-5.0); CALCIUM 8.2 mg/dL (8.5-10.1)
[2023-12-22 10:20] LABS: CREATININE 0.9 mg/dL (0.55-1.3)
[2023-12-22 10:21] LABS: BILIRUBIN,TOTAL 0.2 mg/dL (0.2-1); TOT PROT 4.9 g/dl (6.4-8.2)
[2023-12-22] MEDS: MIDODRINE HCL 5 MG TABLET GT SCH (13:08)
[2023-12-23] VITALS: RESP 18
[2023-12-23 15:46] VITALS: BP 110/68; PULSE 66; TEMP 98
== END 2023-12-23 18:07 | DRG 720 ==
LOC: JER 08:21 → JERBED 11:43 → JICU 14:19 → J7W 12-21 07:09
PROVIDERS: ADMIT Internal Medicine; ATTEND Family Medicine
PROC: 4A133B1 Monitoring of Arterial Pressure, Peripheral, Percutaneous Approach (ICD-10-PCS; 2023-12-06)
PROC: 4A133J1 Monitoring of Arterial Pulse, Peripheral, Percutaneous Approach (ICD-10-PCS; 2023-12-06)
PROC: 30233N1 Transfusion of Nonautologous Red Blood Cells into Peripheral Vein, Percutaneous Approach (ICD-10-PCS; principal; 2023-12-14)
DX: A41.9 Sepsis, unspecified organism (principal); J96.00 Acute respiratory failure, unspecified whether with hypoxia or hypercapnia; E43 Unspecified severe protein-calorie malnutrition; R65.21 Severe sepsis with septic shock; N17.9 Acute kidney failure, unspecified; R53.2 Functional quadriplegia; E87.0 Hyperosmolality and hypernatremia; N39.0 Urinary tract infection, site not specified; Z68.1 Body mass index [BMI] 19.9 or less, adult; E78.5 Hyperlipidemia, unspecified; I10 Essential (primary) hypertension; D64.9 Anemia, unspecified; F01.50 Vascular dementia, unspecified severity, without behavioral disturbance, psychotic disturbance, mood disturbance, and anxiety; E11.9 Type 2 diabetes mellitus without complications; B96.1 Klebsiella pneumoniae [K. pneumoniae] as the cause of diseases classified elsewhere; I25.10 Atherosclerotic heart disease of native coronary artery without angina pectoris; R64 Cachexia; Z68.24 Body mass index [BMI] 24.0-24.9, adult
CPT/HCPCS: 0241U-QW; 36415; 36430; 36511; 36600; 70450-TC; 71045-TC-FY; 74018-TC-FY; 76775-TC; 80048; 80053; 81003; 82040; 82140; 82272; 82436; 82533; 82607; 82728; 82803; 82962; 83540; 83550; 83605; 83735; 83880; 83935; 84100; 84133; 84295; 84300; 84439; 84443; 84466; 84484; 85025; 85027; 85610; 85730; 86780; 86850; 86900; 86901; 86922; 87040; 87086; 87102; 87186; 87210; 87324; 87449; 93005; 93010; 94660; 99285-25; G0480; J1644; J3490; P9038; P9058

== ENCOUNTER 2024-03-18 13:43 | Inpatient (IN) | payer OTHER ==
[2024-03-18] MEDS: LACTATED RINGERS SOLUTION 1000 ML INFUS.BAG IV ONE ×2 (15:07→15:39)
[2024-03-18 15:10] LABS: EPI CELLS 6 /uL (0-25.1); HYALINE CASTS 4 /uL (0-3.1); URINE APPEARANCE TURBID; URINE BILIRUBIN 2+ (NEGATIVE); URINE COLOR RED; URINE GLUCOSE (UA) NEGATIVE (NEGATIVE); URINE KETONE NEGATIVE (NEGATIVE); URINE LEUK ESTERASE 2+ (NEGATIVE); URINE NITRITE POSITIVE (NEGATIVE); URINE PROTEIN 2+ (NEGATIVE); URINE RBC 42493 /uL (0-23.9); URINE UROBILINOGEN 0.2 mg/dL (0.2-1.0); URINE WBC 884 /uL (0-25.8)
[2024-03-18] MEDS ORDERED: ACETAMINOPHEN INJECTION 100 ML ONE (15:25)
[2024-03-18] MEDS: ACETAMINOPHEN 1000 MG/100 ML BAG IVPB ONE (15:38)
[2024-03-18] MEDS: DEXTROSE 5%-NORMAL SALINE 1,000 ML IV SCH (15:38)
[2024-03-18 15:39] LABS: URINE BACTERIA 985 /uL (0-1359)
[2024-03-18 16:10] LABS: VENOUS BASE EXCESS 3.7 mmol/L (-2-2); VENOUS O2 SATURATION 98.9 % (70-80); VENOUS PCO2 37.5 mmHg (38-52); VENOUS PH 7.481 (7.310-7.410)
[2024-03-18 16:12] LABS: BASO % 0.4 % (0-2.0); EOS % 1.3 % (0-4.5); HEMATOCRIT 28.6 % (35.4-49); HEMOGLOBIN 8.6 GM/dL (11.7-16.9); LYMPH % 11.2 % (8-40); MCH 27.1 pg (25.7-33.7); MCHC 30.1 g/dl (32.0-35.9); MEAN PLT VOLUME 11.5 fl (7.5-11.1); MONO % 6.8 % (3.8-10.2); NEUT % 80.3 % (42.8-82.8); PLATELET COUNT 134 10^3/uL (134-434); RBC 3.18 M/mm3 (4.00-5.60); RDW 17.9 % (11.9-15.9); WHITE BLOOD COUNT 9.4 K/mm3 (4.0-10.0)
[2024-03-18 16:37] LABS: ANISOCYTOSIS 2+; MACROCYTOSIS 1+; TARGET CELLS 1+
[2024-03-18] MEDS ORDERED: VANCOMYCIN/WATER 1250 MG 1,250 MG/250 ML BAG IVPB ONE (16:47)
[2024-03-18] MEDS ORDERED: CEFTRIAXONE 1 GM/50 ML BAG ONE (16:48)
[2024-03-18] MEDS ORDERED: PIPERACILLIN/TAZOB 4.5 GM 4.5 GM/100 ML BAG IVPB ONE (16:48)
[2024-03-18 16:53] LABS: ALBUMIN 2.6 g/dl (3.4-5.0); ANION GAP 8 mmol/L (4-13); CALCIUM 9.2 mg/dL (8.5-10.1); CHLORIDE 147 mmol/L (98-107); CO2 28 mmol/L (21-32); GLUCOSE,RANDOM 128 mg/dL (74-106); POTASSIUM 3.8 mmol/L (3.5-5.1); SODIUM 183 mmol/L (136-145)
[2024-03-18] MEDS: CEFTRIAXONE 1,000 MG in DEXTROSE 5%-WATER - 50 ML IVPB ONE (16:55)
[2024-03-18 16:56] LABS: CREATININE 4.3 mg/dL (0.55-1.3); SGOT/AST 54 U/L (15-37); SGPT/ALT 65 U/L (13-61)
[2024-03-18 16:57] LABS: BILIRUBIN,TOTAL 0.2 mg/dL (0.2-1); TOT PROT 7.2 g/dl (6.4-8.2)
[2024-03-18] MEDS: PIPERACILLIN/TAZOB 4.5 GM 4.5 GM in DEXTROSE 5%-WATER 100 ML IVPB ONE (16:58)
[2024-03-18] MEDS: VANCOMYCIN/WATER 1250 MG 1,250 MG/250 ML BAG IVPB ONE (16:58)
[2024-03-18 17:07] LABS: ALK PHOS 168 U/L (45-117); BLOOD UREA NITROGEN 237.4 mg/dL (7-18); MAGNESIUM 4.9 mg/dL (1.8-2.4)
[2024-03-18] MEDS: DEXTROSE 5%-WATER - 1,000 ML IV SCH (17:09)
[2024-03-18] MEDS: SODIUM CHLORIDE 1,000 ML IV STA (19:09)
[2024-03-18] MEDS: DEXTROSE 5%-0.45% SALINE 1,000 ML IV SCH (19:10)
[2024-03-18] MEDS: SODIUM CHLORIDE 1,000 ML IV SCH (19:10)
[2024-03-18] MEDS: ERTAPENEM SODIUM 0.5 GM in SODIUM CHLORIDE 50 ML IVPB ONE (20:25)
[2024-03-19 01:08] LABS: MCH 26.9 pg (25.7-33.7); MCHC 30.1 g/dl (32.0-35.9); MEAN CELL VOLUME 89.5 fl (80-96); MEAN PLT VOLUME 11.4 fl (7.5-11.1); PLATELET COUNT 120 10^3/uL (134-434); RBC 2.46 M/mm3 (4.00-5.60); RDW 18.2 % (11.9-15.9); WHITE BLOOD COUNT 6.2 K/mm3 (4.0-10.0)
[2024-03-19 01:15] LABS: HEMOGLOBIN 6.6 GM/dL (11.7-16.9)
[2024-03-19 01:27] LABS: CHLORIDE 142 mmol/L (98-107); POTASSIUM 3.6 mmol/L (3.5-5.1)
[2024-03-19 01:30] LABS: CALCIUM 8.5 mg/dL (8.5-10.1)
[2024-03-19 01:31] LABS: CO2 31 mmol/L (21-32); GLUCOSE,RANDOM 339 mg/dL (74-106)
[2024-03-19 01:34] LABS: CREATININE 4.2 mg/dL (0.55-1.3)
[2024-03-19 01:48] LABS: ANION GAP 5 mmol/L (4-13); BLOOD UREA NITROGEN 228.2 mg/dL (7-18); SODIUM 177 mmol/L (136-145)
[2024-03-19 07:28] LABS: HEMATOCRIT 22.2 % (35.4-49); MCH 27.3 pg (25.7-33.7); MCHC 30.3 g/dl (32.0-35.9); MEAN CELL VOLUME 89.9 fl (80-96); MEAN PLT VOLUME 11.4 fl (7.5-11.1); PLATELET COUNT 115 10^3/uL (134-434); RBC 2.47 M/mm3 (4.00-5.60); RDW 18.6 % (11.9-15.9); WHITE BLOOD COUNT 6.6 K/mm3 (4.0-10.0)
[2024-03-19 07:32] LABS: HEMOGLOBIN 6.7 GM/dL (11.7-16.9)
[2024-03-19] MEDS: INSULIN ASPART SLIDING SCALE (NOVOLOG) 1 VIAL SQ SCH (07:35)
[2024-03-19] MEDS: MUPIROCIN 2% TOPICAL OINTMENT FOR DECOLONIZATION NS SCH (07:36)
[2024-03-19 08:29] LABS: MAGNESIUM 3.6 mg/dL (1.8-2.4)
[2024-03-19 08:32] LABS: PHOSPHOROUS 4.9 mg/dL (2.5-4.9)
[2024-03-19] MEDS: SODIUM CHLORIDE 0.45% 1,000 ML IV SCH (09:22)
[2024-03-19] MEDS: FLU VACCINE (FLULAVAL) PF 45 MCG/0.5 ML SYRINGE 2024-2025 IM ONE (09:23)
[2024-03-19] MEDS: HEPARIN NA (PORCINE) 5,000 UNITS/ML 1ML VIAL SQ SCH (09:24)
[2024-03-19] MEDS: SERTRALINE HCL 50 MG TABLET (FP) PO SCH (09:24)
[2024-03-19] MEDS: FLUDROCORTISONE ACETATE 0.1 MG TABLET (FP) PO SCH (09:24)
[2024-03-19] MEDS: LACTATED RINGERS SOLUTION 1,000 ML/1,000 ML INFUS.BAG IV STA ×2 (10:05→13:05)
[2024-03-19 10:06] LABS: CHLORIDE 142 mmol/L (98-107); POTASSIUM 3.9 mmol/L (3.5-5.1)
[2024-03-19 10:08] LABS: CALCIUM 8.3 mg/dL (8.5-10.1)
[2024-03-19 10:09] LABS: ALBUMIN 2.2 g/dl (3.4-5.0); CO2 31 mmol/L (21-32); GLUCOSE,RANDOM 247 mg/dL (74-106)
[2024-03-19 10:12] LABS: CREATININE 3.7 mg/dL (0.55-1.3); SGOT/AST 48 U/L (15-37); SGPT/ALT 54 U/L (13-61)
[2024-03-19 10:13] LABS: BILIRUBIN,TOTAL 0.4 mg/dL (0.2-1)
[2024-03-19 10:14] LABS: TOT PROT 5.9 g/dl (6.4-8.2)
[2024-03-19] MEDS ORDERED: VANCOMYCIN 1,000 MG in DEXTROSE 5%-WATER - 250 ML IVPB ONE (10:18)
[2024-03-19 10:20] LABS: ALK PHOS 136 U/L (45-117); ANION GAP 2 mmol/L (4-13); BLOOD UREA NITROGEN 199.8 mg/dL (7-18); SODIUM 176 mmol/L (136-145)
[2024-03-19] MEDS: LACTATED RINGERS SOLUTION 1000 ML INFUS.BAG IV ONE (11:45)
[2024-03-19] MEDS ORDERED: MIDAZOLAM HCL 2 MG/2 ML SINGLE DOSE VIAL ONE (12:52)
[2024-03-19] MEDS: VANCOMYCIN/WATER FOR INJ (PEG) 1,000 MG/200 ML BAG IVPB ONE (13:05)
[2024-03-19] MEDS: MIDAZOLAM HCL 2 MG/2 ML SINGLE DOSE VIAL IVPUSH ONE (13:09)
[2024-03-19] MEDS ORDERED: NOREPINEPHRINE BITARTRATE 4,000 MCG in DEXTROSE 5%-WATER - 496 ML IV SCH (14:15)
[2024-03-19] MEDS: CEFTRIAXONE 1 GM in DEXTROSE 5%-WATER - 50 ML IVPB SCH (14:44)
[2024-03-19] MEDS: MIDODRINE HCL 5 MG TABLET GT SCH (14:44)
[2024-03-19] MEDS: NOREPINEPHRINE BITARTRATE/D5W 8 MG/250 ML BAG IVPB SCH (15:08)
[2024-03-19 15:36] LABS: HEMATOCRIT 19.7 % (35.4-49); MCH 27.4 pg (25.7-33.7); MCHC 30.9 g/dl (32.0-35.9); MEAN CELL VOLUME 88.7 fl (80-96); MEAN PLT VOLUME 10.5 fl (7.5-11.1); PLATELET COUNT 110 10^3/uL (134-434); RBC 2.22 M/mm3 (4.00-5.60); RDW 17.9 % (11.9-15.9); WHITE BLOOD COUNT 6.9 K/mm3 (4.0-10.0)
[2024-03-19 15:39] LABS: HEMOGLOBIN 6.1 GM/dL (11.7-16.9)
[2024-03-19 16:07] LABS: CHLORIDE 142 mmol/L (98-107); POTASSIUM 3.6 mmol/L (3.5-5.1)
[2024-03-19 16:08] LABS: CALCIUM 8.3 mg/dL (8.5-10.1)
[2024-03-19 16:09] LABS: ANION GAP 3 mmol/L (4-13); CO2 29 mmol/L (21-32); GLUCOSE,RANDOM 255 mg/dL (74-106); SODIUM 174 mmol/L (136-145)
[2024-03-19 16:12] LABS: CREATININE 3.4 mg/dL (0.55-1.3)
[2024-03-19 16:46] LABS: BLOOD UREA NITROGEN 180.3 mg/dL (7-18)
[2024-03-19 22:13] LABS: BASO % 0.2 % (0-2.0); HEMATOCRIT 23.7 % (35.4-49); HEMOGLOBIN 7.5 GM/dL (11.7-16.9); MCH 27.9 pg (25.7-33.7); MCHC 31.6 g/dl (32.0-35.9); MEAN CELL VOLUME 88.1 fl (80-96); MEAN PLT VOLUME 10.2 fl (7.5-11.1); MONO % 5.3 % (3.8-10.2); NEUT % 77.5 % (42.8-82.8); PLATELET COUNT 123 10^3/uL (134-434); RBC 2.69 M/mm3 (4.00-5.60); WHITE BLOOD COUNT 8.2 K/mm3 (4.0-10.0)
[2024-03-19 22:17] LABS: ADD RBC MORPHOLOGY YES
[2024-03-19 22:36] LABS: CHLORIDE 140 mmol/L (98-107); POTASSIUM 3.4 mmol/L (3.5-5.1)
[2024-03-19 22:38] LABS: CALCIUM 8.3 mg/dL (8.5-10.1); CO2 28 mmol/L (21-32); GLUCOSE,RANDOM 273 mg/dL (74-106)
[2024-03-19 22:40] LABS: ANISOCYTOSIS 2+; MACROCYTOSIS 0; TARGET CELLS 1+
[2024-03-19 22:42] LABS: CREATININE 3.4 mg/dL (0.55-1.3)
[2024-03-19 22:49] LABS: ANION GAP 4 mmol/L (4-13); SODIUM 172 mmol/L (136-145)
[2024-03-19] MEDS: CHLORHEXIDINE GLUCONATE 4% CLEANSER FOR DECOLONIZATION TP SCH (23:07)
[2024-03-20 01:56] LABS: HEMATOCRIT 24.5 % (35.4-49); HEMOGLOBIN 7.7 GM/dL (11.7-16.9); MCH 27.7 pg (25.7-33.7); MCHC 31.5 g/dl (32.0-35.9); MEAN PLT VOLUME 10.1 fl (7.5-11.1); PLATELET COUNT 126 10^3/uL (134-434); RBC 2.79 M/mm3 (4.00-5.60); RDW 16.8 % (11.9-15.9); WHITE BLOOD COUNT 8.8 K/mm3 (4.0-10.0)
[2024-03-20 02:48] LABS: CHLORIDE 140 mmol/L (98-107); POTASSIUM 3.6 mmol/L (3.5-5.1)
[2024-03-20 02:50] LABS: ALBUMIN 2.2 g/dl (3.4-5.0); CALCIUM 8.5 mg/dL (8.5-10.1); CO2 27 mmol/L (21-32); GLUCOSE,RANDOM 280 mg/dL (74-106)
[2024-03-20 02:53] LABS: CREATININE 3.3 mg/dL (0.55-1.3); PHOSPHOROUS 4.7 mg/dL (2.5-4.9); SGOT/AST 56 U/L (15-37); SGPT/ALT 55 U/L (13-61)
[2024-03-20 02:55] LABS: BILIRUBIN,TOTAL 0.3 mg/dL (0.2-1); TOT PROT 5.9 g/dl (6.4-8.2)
[2024-03-20 02:56] LABS: ALK PHOS 139 U/L (45-117)
[2024-03-20 04:04] LABS: ANION GAP 5 mmol/L (4-13); BLOOD UREA NITROGEN 156.6 mg/dL (7-18); SODIUM 173 mmol/L (136-145)
[2024-03-20 04:53] LABS: ANISOCYTOSIS 3+; MACROCYTOSIS 0; ROULEAU 1+
[2024-03-20] MEDS: SODIUM CHLORIDE 0.45% 1,000 ML IV SCH (07:15)
[2024-03-20 08:02] LABS: HEMATOCRIT 25.4 % (35.4-49); HEMOGLOBIN 7.9 GM/dL (11.7-16.9); MCH 27.8 pg (25.7-33.7); MCHC 31.3 g/dl (32.0-35.9); MEAN PLT VOLUME 10.8 fl (7.5-11.1); PLATELET COUNT 124 10^3/uL (134-434); RBC 2.85 M/mm3 (4.00-5.60); RDW 16.9 % (11.9-15.9); WHITE BLOOD COUNT 9.3 K/mm3 (4.0-10.0)
[2024-03-20 08:10] LABS: CHLORIDE 140 mmol/L (98-107); POTASSIUM 3.7 mmol/L (3.5-5.1)
[2024-03-20 08:15] LABS: CALCIUM 8.6 mg/dL (8.5-10.1); CO2 27 mmol/L (21-32); GLUCOSE,RANDOM 295 mg/dL (74-106); MAGNESIUM 3.2 mg/dL (1.8-2.4)
[2024-03-20 08:19] LABS: CREATININE 3.4 mg/dL (0.55-1.3)
[2024-03-20 08:34] LABS: ANION GAP 5 mmol/L (4-13); BLOOD UREA NITROGEN 159.6 mg/dL (7-18); SODIUM 173 mmol/L (136-145)
[2024-03-20 09:06] LABS: ANISOCYTOSIS 0; MACROCYTOSIS 0
[2024-03-20 13:57] LABS: CALCIUM 8.7 mg/dL (8.5-10.1); CHLORIDE 140 mmol/L (98-107); POTASSIUM 3.7 mmol/L (3.5-5.1)
[2024-03-20 13:58] LABS: CO2 28 mmol/L (21-32); GLUCOSE,RANDOM 276 mg/dL (74-106)
[2024-03-20 14:01] LABS: CREATININE 3.1 mg/dL (0.55-1.3)
[2024-03-20 14:06] LABS: ANION GAP 5 mmol/L (4-13); BLOOD UREA NITROGEN 144.1 mg/dL (7-18); SODIUM 173 mmol/L (136-145)
[2024-03-20] MEDS: PIPERACILLIN/TAZOB 2.25 GM 2.25 GM in DEXTROSE 5%-WATER - 50 ML IVPB SCH (15:47)
[2024-03-20] MEDS: MEROPENEM 1 GM in DEXTROSE 5%-WATER 100 ML IVPB SCH (20:35)
[2024-03-21 07:46] LABS: HEMATOCRIT 25.2 % (35.4-49); HEMOGLOBIN 7.9 GM/dL (11.7-16.9); MCH 27.8 pg (25.7-33.7); MCHC 31.3 g/dl (32.0-35.9); MEAN CELL VOLUME 88.9 fl (80-96); MEAN PLT VOLUME 10.6 fl (7.5-11.1); PLATELET COUNT 116 10^3/uL (134-434); RBC 2.83 M/mm3 (4.00-5.60); WHITE BLOOD COUNT 6.1 K/mm3 (4.0-10.0)
[2024-03-21 07:46] LABS: BASO % 0.3 % (0-2.0); EOS % 2.9 % (0-4.5); HEMATOCRIT 25.4 % (35.4-49); HEMOGLOBIN 7.8 GM/dL (11.7-16.9); LYMPH % 17.2 % (8-40); MCH 27.5 pg (25.7-33.7); MCHC 30.9 g/dl (32.0-35.9); MEAN CELL VOLUME 88.7 fl (80-96); MEAN PLT VOLUME 10.6 fl (7.5-11.1); MONO % 6.5 % (3.8-10.2); NEUT % 73.1 % (42.8-82.8); PLATELET COUNT 115 10^3/uL (134-434); RBC 2.86 M/mm3 (4.00-5.60); RDW 17.1 % (11.9-15.9); WHITE BLOOD COUNT 6.3 K/mm3 (4.0-10.0)
[2024-03-21 08:02] LABS: MAGNESIUM 2.8 mg/dL (1.8-2.4)
[2024-03-21 08:06] LABS: PHOSPHOROUS 4.7 mg/dL (2.5-4.9)
[2024-03-21 13:32] VITALS: BMI 18.3
[2024-03-21] MEDS: AMINO ACIDS/PROTEIN HYDROLYS 30 ML LIQUID.PKT GT SCH (18:55)
[2024-03-21] MEDS: CEFTRIAXONE 1 GM in DEXTROSE 5%-WATER - 50 ML IVPB SCH (18:55)
[2024-03-21] MEDS: VANCOMYCIN/WATER FOR INJ (PEG) 1,000 MG/200 ML BAG IVPB ONE (18:55)
[2024-03-21] MEDS: MEROPENEM 1 GM in DEXTROSE 5%-WATER 100 ML IVPB SCH (19:26)
[2024-03-21 21:42] LABS: CHLORIDE 134 mmol/L (98-107); POTASSIUM 3.4 mmol/L (3.5-5.1)
[2024-03-21 21:45] LABS: ALBUMIN 2.1 g/dl (3.4-5.0); CO2 26 mmol/L (21-32); GLUCOSE,RANDOM 173 mg/dL (74-106)
[2024-03-21 21:48] LABS: CREATININE 2.4 mg/dL (0.55-1.3); SGOT/AST 84 U/L (15-37); SGPT/ALT 73 U/L (13-61)
[2024-03-21 21:49] LABS: BILIRUBIN,TOTAL 0.2 mg/dL (0.2-1); TOT PROT 5.5 g/dl (6.4-8.2)
[2024-03-21 21:51] LABS: ALK PHOS 137 U/L (45-117); ANION GAP 5 mmol/L (4-13); BLOOD UREA NITROGEN 91.2 mg/dL (7-18); SODIUM 164 mmol/L (136-145)
[2024-03-22 07:27] LABS: BASO % 0.4 % (0-2.0); HEMATOCRIT 26.3 % (35.4-49); HEMOGLOBIN 8.2 GM/dL (11.7-16.9); LYMPH % 15.8 % (8-40); MCH 27.8 pg (25.7-33.7); MCHC 31.3 g/dl (32.0-35.9); MEAN CELL VOLUME 88.7 fl (80-96); MEAN PLT VOLUME 10.6 fl (7.5-11.1); MONO % 6.2 % (3.8-10.2); NEUT % 74.6 % (42.8-82.8); PLATELET COUNT 116 10^3/uL (134-434); RBC 2.97 M/mm3 (4.00-5.60); RDW 16.7 % (11.9-15.9); WHITE BLOOD COUNT 5.1 K/mm3 (4.0-10.0)
[2024-03-22 07:31] LABS: CHLORIDE 134 mmol/L (98-107); POTASSIUM 3.5 mmol/L (3.5-5.1)
[2024-03-22 07:34] LABS: ALBUMIN 2.2 g/dl (3.4-5.0); BLOOD UREA NITROGEN 97.4 mg/dL (7-18); CALCIUM 8.6 mg/dL (8.5-10.1)
[2024-03-22 07:35] LABS: CO2 26 mmol/L (21-32); GLUCOSE,RANDOM 268 mg/dL (74-106); MAGNESIUM 2.7 mg/dL (1.8-2.4)
[2024-03-22 07:37] LABS: CREATININE 2.2 mg/dL (0.55-1.3); SGOT/AST 112 U/L (15-37); SGPT/ALT 88 U/L (13-61)
[2024-03-22 07:38] LABS: PHOSPHOROUS 4.8 mg/dL (2.5-4.9)
[2024-03-22 07:39] LABS: BILIRUBIN,TOTAL 0.4 mg/dL (0.2-1); TOT PROT 5.9 g/dl (6.4-8.2)
[2024-03-22 07:40] LABS: ALK PHOS 146 U/L (45-117)
[2024-03-22 07:50] LABS: ANION GAP 4 mmol/L (4-13); SODIUM 165 mmol/L (136-145)
[2024-03-22] MEDS: ASCORBIC ACID 500 MG/5 ML UNIT DOSE CUP GT SCH (10:01)
[2024-03-22] MEDS: LINEZOLID 600 MG PREMIX BAG 600 MG in PREMIX 300 IVPB SCH (11:15)
[2024-03-22] MEDS: LINEZOLID 600 MG PREMIX BAG 600 MG/300 ML BAG IVPB SCH (13:06)
[2024-03-22] MEDS: AMPICILLIN - 2 GM in SODIUM CHLORIDE 100 ML IVPB SCH (17:20)
[2024-03-22] MEDS ORDERED: PIPERACILLIN/TAZOB 2.25 GM 2.25 GM in DEXTROSE 5%-WATER - 50 ML IVPB SCH (18:00)
[2024-03-23] MEDS: DEXTROSE 5%-WATER - 1,000 ML IV SCH (04:30)
[2024-03-23 07:42] LABS: HEMATOCRIT 24.5 % (35.4-49); HEMOGLOBIN 7.9 GM/dL (11.7-16.9); MCH 27.9 pg (25.7-33.7); MEAN PLT VOLUME 9.8 fl (7.5-11.1); PLATELET COUNT 112 10^3/uL (134-434); RBC 2.82 M/mm3 (4.00-5.60); RDW 16.6 % (11.9-15.9); WHITE BLOOD COUNT 4.1 K/mm3 (4.0-10.0)
[2024-03-23 07:58] LABS: CHLORIDE 132 mmol/L (98-107); POTASSIUM 3.3 mmol/L (3.5-5.1)
[2024-03-23 08:01] LABS: BLOOD UREA NITROGEN 75.6 mg/dL (7-18); CALCIUM 8.1 mg/dL (8.5-10.1); CO2 27 mmol/L (21-32); GLUCOSE,RANDOM 245 mg/dL (74-106)
[2024-03-23 08:02] LABS: MAGNESIUM 2.4 mg/dL (1.8-2.4)
[2024-03-23 08:05] LABS: CREATININE 1.9 mg/dL (0.55-1.3); SGOT/AST 98 U/L (15-37); SGPT/ALT 86 U/L (13-61)
[2024-03-23 08:06] LABS: PHOSPHOROUS 3.8 mg/dL (2.5-4.9)
[2024-03-23 08:07] LABS: BILIRUBIN,TOTAL 0.2 mg/dL (0.2-1); TOT PROT 5.6 g/dl (6.4-8.2)
[2024-03-23 08:08] LABS: ALK PHOS 151 U/L (45-117)
[2024-03-23 08:44] LABS: ANION GAP 3 mmol/L (4-13); SODIUM 162 mmol/L (136-145)
[2024-03-23] MEDS: POTASSIUM CHLORIDE ORAL LIQUID 20 MEQ/15 ML PO ONE ×2 (10:19→22:19)
[2024-03-23] MEDS: MIDODRINE HCL 5 MG TABLET GT SCH (10:21)
[2024-03-23 20:22] LABS: ANION GAP 3 mmol/L (4-13); CALCIUM 8.3 mg/dL (8.5-10.1); CHLORIDE 133 mmol/L (98-107); CO2 28 mmol/L (21-32); CREATININE 1.8 mg/dL (0.55-1.3); GLUCOSE,RANDOM 136 mg/dL (74-106); POTASSIUM 3.4 mmol/L (3.5-5.1); SODIUM 165 mmol/L (136-145)
[2024-03-23 20:34] LABS: BLOOD UREA NITROGEN 64.3 mg/dL (7-18)
[2024-03-23] MEDS: HEPARIN NA (PORCINE) 5,000 UNITS/ML 1ML VIAL SQ SCH (22:19)
[2024-03-24 07:33] LABS: BASO % 0.3 % (0-2.0); EOS % 4.9 % (0-4.5); HEMATOCRIT 23.8 % (35.4-49); HEMOGLOBIN 7.5 GM/dL (11.7-16.9); LYMPH % 23.5 % (8-40); MCH 27.7 pg (25.7-33.7); MCHC 31.7 g/dl (32.0-35.9); MEAN CELL VOLUME 87.4 fl (80-96); MEAN PLT VOLUME 9.7 fl (7.5-11.1); MONO % 7.7 % (3.8-10.2); NEUT % 63.6 % (42.8-82.8); PLATELET COUNT 112 10^3/uL (134-434); RBC 2.72 M/mm3 (4.00-5.60); RDW 16.7 % (11.9-15.9); WHITE BLOOD COUNT 3.9 K/mm3 (4.0-10.0)
[2024-03-24 07:57] LABS: POTASSIUM 3.7 mmol/L (3.5-5.1)
[2024-03-24 08:29] LABS: BLOOD UREA NITROGEN 58.9 mg/dL (7-18); CALCIUM 7.9 mg/dL (8.5-10.1); MAGNESIUM 2.3 mg/dL (1.8-2.4)
[2024-03-24 08:33] LABS: CREATININE 1.6 mg/dL (0.55-1.3); PHOSPHOROUS 3.5 mg/dL (2.5-4.9)
[2024-03-24 08:34] LABS: BILIRUBIN,TOTAL 0.3 mg/dL (0.2-1); TOT PROT 5.6 g/dl (6.4-8.2)
[2024-03-24] MEDS: SODIUM CHLORIDE 0.45% 1,000 ML IV SCH ×2 (11:17→12:31)
[2024-03-24] MEDS ORDERED: SODIUM CHLORIDE 0.45% 1,000 ML with POTASSIUM CHLORIDE 30 MEQ IV SCH (12:15)
[2024-03-25 06:06] LABS: HEMATOCRIT 21.3 % (35.4-49); MCH 27.7 pg (25.7-33.7); MCHC 31.8 g/dl (32.0-35.9); MEAN PLT VOLUME 9.3 fl (7.5-11.1); PLATELET COUNT 124 10^3/uL (134-434); RBC 2.45 M/mm3 (4.00-5.60); RDW 16.5 % (11.9-15.9)
[2024-03-25 06:08] LABS: HEMATOCRIT 21.6 % (35.4-49); MCH 27.8 pg (25.7-33.7); MCHC 31.9 g/dl (32.0-35.9); MEAN CELL VOLUME 86.9 fl (80-96); MEAN PLT VOLUME 9.2 fl (7.5-11.1); PLATELET COUNT 126 10^3/uL (134-434); RBC 2.48 M/mm3 (4.00-5.60); RDW 16.3 % (11.9-15.9)
[2024-03-25 06:26] LABS: POTASSIUM 3.1 mmol/L (3.5-5.1)
[2024-03-25 06:27] LABS: ALBUMIN 1.9 g/dl (3.4-5.0); CALCIUM 7.6 mg/dL (8.5-10.1)
[2024-03-25 06:28] LABS: BLOOD UREA NITROGEN 48.2 mg/dL (7-18)
[2024-03-25 06:32] LABS: BILIRUBIN,TOTAL 0.2 mg/dL (0.2-1); CREATININE 1.4 mg/dL (0.55-1.3); PHOSPHOROUS 3.4 mg/dL (2.5-4.9); TOT PROT 5.3 g/dl (6.4-8.2)
[2024-03-25 06:37] LABS: HEMOGLOBIN 6.9 GM/dL (11.7-16.9)
[2024-03-25 06:40] LABS: HEMOGLOBIN 6.8 GM/dL (11.7-16.9)
[2024-03-25] MEDS: POTASSIUM CHLORIDE ORAL LIQUID 20 MEQ/15 ML PEG ONE ×2 (09:00→09:01)
[2024-03-25 09:05] LABS: ANISOCYTOSIS 2+; MACROCYTOSIS 2+; OVALOCYTE 1+; TEAR DROP CELLS 1+
[2024-03-25 19:16] LABS: BASO % 0.2 % (0-2.0); EOS % 3.4 % (0-4.5); HEMATOCRIT 28.8 % (35.4-49); HEMOGLOBIN 9.4 GM/dL (11.7-16.9); LYMPH % 27.3 % (8-40); MCH 27.7 pg (25.7-33.7); MCHC 32.6 g/dl (32.0-35.9); MEAN CELL VOLUME 84.9 fl (80-96); MEAN PLT VOLUME 9.1 fl (7.5-11.1); MONO % 6.3 % (3.8-10.2); NEUT % 62.8 % (42.8-82.8); PLATELET COUNT 149 10^3/uL (134-434); RBC 3.39 M/mm3 (4.00-5.60); RDW 16.5 % (11.9-15.9); WHITE BLOOD COUNT 3.7 K/mm3 (4.0-10.0)
[2024-03-25] MEDS ORDERED: DEXTROSE 50%-WATER 25 GM/50 ML DISP.SYRIN ONE (22:09)
[2024-03-25] MEDS: DEXTROSE 50%-WATER 25 GM/50 ML DISP.SYRIN IVPUSH ONE (22:35)
[2024-03-26 07:30] LABS: BASO % 0.7 % (0-2.0); EOS % 2.8 % (0-4.5); HEMATOCRIT 26.4 % (35.4-49); HEMOGLOBIN 8.7 GM/dL (11.7-16.9); LYMPH % 21.9 % (8-40); MCH 28.1 pg (25.7-33.7); MCH 28.3 pg (25.7-33.7); MCHC 33.1 g/dl (32.0-35.9); MEAN CELL VOLUME 85.1 fl (80-96); MEAN CELL VOLUME 85.4 fl (80-96); MEAN PLT VOLUME 9.2 fl (7.5-11.1); MEAN PLT VOLUME 9.3 fl (7.5-11.1); MONO % 8.7 % (3.8-10.2); NEUT % 65.9 % (42.8-82.8); PLATELET COUNT 171 10^3/uL (134-434); PLATELET COUNT 174 10^3/uL (134-434); RBC 3.09 M/mm3 (4.00-5.60); RDW 16.8 % (11.9-15.9); RDW 17.2 % (11.9-15.9); WHITE BLOOD COUNT 3.2 K/mm3 (4.0-10.0)
[2024-03-26 07:47] LABS: POTASSIUM 3.4 mmol/L (3.5-5.1)
[2024-03-26 08:03] LABS: CALCIUM 7.6 mg/dL (8.5-10.1)
[2024-03-26 08:04] LABS: BLOOD UREA NITROGEN 39.1 mg/dL (7-18); MAGNESIUM 1.9 mg/dL (1.8-2.4)
[2024-03-26 08:07] LABS: CREATININE 1.4 mg/dL (0.55-1.3); PHOSPHOROUS 3.2 mg/dL (2.5-4.9)
[2024-03-26 08:08] LABS: BILIRUBIN,TOTAL 0.3 mg/dL (0.2-1); TOT PROT 5.5 g/dl (6.4-8.2)
[2024-03-27] MEDS: VANCOMYCIN ORAL SOLUTION 125 MG/2.5 ML PO SCH (00:52)
[2024-03-27] MEDS: AMPICILLIN - 2 GM in SODIUM CHLORIDE 100 ML IVPB SCH (01:41)
[2024-03-27] MEDS: MIDODRINE HCL 5 MG TABLET GT SCH (01:41)
[2024-03-27] MEDS: INSULIN ASPART SLIDING SCALE (NOVOLOG) 1 VIAL SQ SCH (06:31)
[2024-03-27] MEDS: FLUDROCORTISONE ACETATE 0.1 MG TABLET (FP) GT SCH (11:16)
[2024-03-27] MEDS: CEFTRIAXONE 1 GM in DEXTROSE 5%-WATER - 50 ML IVPB SCH (11:16)
[2024-03-27] MEDS: ASCORBIC ACID 500 MG/5 ML UNIT DOSE CUP GT SCH (11:16)
[2024-03-27] MEDS: SERTRALINE HCL 50 MG TABLET (FP) GT SCH (11:17)
[2024-03-27 14:30] LABS: BASO % 0.6 % (0-2.0); EOS % 2.5 % (0-4.5); HEMATOCRIT 24.8 % (35.4-49); HEMOGLOBIN 8.3 GM/dL (11.7-16.9); LYMPH % 30.6 % (8-40); MCH 28.1 pg (25.7-33.7); MCHC 33.3 g/dl (32.0-35.9); MEAN CELL VOLUME 84.4 fl (80-96); MEAN PLT VOLUME 8.7 fl (7.5-11.1); MONO % 8.9 % (3.8-10.2); NEUT % 57.4 % (42.8-82.8); PLATELET COUNT 208 10^3/uL (134-434); RBC 2.94 M/mm3 (4.00-5.60); RDW 17.4 % (11.9-15.9); WHITE BLOOD COUNT 2.9 K/mm3 (4.0-10.0)
[2024-03-27 14:44] LABS: POTASSIUM 3.2 mmol/L (3.5-5.1)
[2024-03-27 14:48] LABS: ALBUMIN 1.8 g/dl (3.4-5.0); BLOOD UREA NITROGEN 31.4 mg/dL (7-18); CALCIUM 7.8 mg/dL (8.5-10.1)
[2024-03-27 14:52] LABS: CREATININE 1.4 mg/dL (0.55-1.3)
[2024-03-27 14:53] LABS: BILIRUBIN,TOTAL 0.3 mg/dL (0.2-1); TOT PROT 5.3 g/dl (6.4-8.2)
[2024-03-27] MEDS ORDERED: CHLORHEXIDINE GLUCONATE 4% CLEANSER FOR DECOLONIZATION TP SCH (22:00)
[2024-03-28] MEDS: ACETAMINOPHEN 325 MG TABLET (FP) PO ONE (06:56)
[2024-03-28 11:08] LABS: POTASSIUM 3.5 mmol/L (3.5-5.1)
[2024-03-28 11:11] LABS: ALBUMIN 1.9 g/dl (3.4-5.0)
[2024-03-28 11:12] LABS: BLOOD UREA NITROGEN 35.6 mg/dL (7-18)
[2024-03-28 11:15] LABS: CREATININE 1.5 mg/dL (0.55-1.3)
[2024-03-28 11:16] LABS: BILIRUBIN,TOTAL 0.2 mg/dL (0.2-1); TOT PROT 5.6 g/dl (6.4-8.2)
[2024-03-29] MEDS: ACETAMINOPHEN 325 MG TABLET (FP) PO SCH (06:46)
[2024-03-29 10:00] LABS: BASO % 0.6 % (0-2.0); EOS % 0.2 % (0-4.5); HEMATOCRIT 26.8 % (35.4-49); LYMPH % 17.3 % (8-40); MCH 28.8 pg (25.7-33.7); MCHC 33.7 g/dl (32.0-35.9); MEAN CELL VOLUME 85.4 fl (80-96); MEAN PLT VOLUME 8.7 fl (7.5-11.1); MONO % 7.7 % (3.8-10.2); NEUT % 74.2 % (42.8-82.8); PLATELET COUNT 281 10^3/uL (134-434); RBC 3.13 M/mm3 (4.00-5.60); WHITE BLOOD COUNT 8.4 K/mm3 (4.0-10.0)
[2024-03-29 10:12] LABS: POTASSIUM 3.9 mmol/L (3.5-5.1)
[2024-03-29 10:14] LABS: CALCIUM 8.3 mg/dL (8.5-10.1)
[2024-03-29 10:15] LABS: BLOOD UREA NITROGEN 41.9 mg/dL (7-18)
[2024-03-29 10:18] LABS: CREATININE 1.8 mg/dL (0.55-1.3)
[2024-03-29 10:19] LABS: BILIRUBIN,TOTAL 0.2 mg/dL (0.2-1)
[2024-03-29] MEDS ORDERED: ACETAMINOPHEN 650 MG/20.3 ML ORAL SOLUTION (CUPS) PO PRN (11:20)
[2024-03-29] MEDS: ACETAMINOPHEN 650 MG/20.3 ML ORAL SOLUTION (CUPS) GT PRN (12:26)
[2024-03-29] MEDS: PIPERACILLIN/TAZOB 2.25 GM 2.25 GM/50 ML BAG IVPB SCH (23:00)
[2024-03-30] MEDS: PIPERACILLIN/TAZOB 2.25 GM 2.25 GM in DEXTROSE 5%-WATER - 50 ML IVPB SCH (11:55)
[2024-03-31] MEDS: BANATROL PLUS POWDER PACKET GT SCH (06:59)
[2024-03-31 11:22] LABS: CALCIUM 8.3 mg/dL (8.5-10.1)
[2024-03-31 11:23] LABS: ALBUMIN 1.6 g/dl (3.4-5.0); BLOOD UREA NITROGEN 49.9 mg/dL (7-18)
[2024-03-31 11:27] LABS: CREATININE 1.9 mg/dL (0.55-1.3)
[2024-03-31 11:28] LABS: BILIRUBIN,TOTAL 0.3 mg/dL (0.2-1); TOT PROT 5.5 g/dl (6.4-8.2)
[2024-03-31] MEDS: MULTIVIT-MINERALS ORAL LIQUID GT SCH (13:59)
[2024-03-31 16:37] VITALS: RESP 20
[2024-04-02 09:34] VITALS: BP 113/99; PULSE 63; TEMP 98.6
== END 2024-04-02 12:23 | DRG 720 ==
LOC: JER 13:43 → JERBED 17:10 → JICU 22:03 → J6S 03-26 21:49
PROVIDERS: ADMIT Internal Medicine; ATTEND Internal Medicine
PROC: 30233N1 Transfusion of Nonautologous Red Blood Cells into Peripheral Vein, Percutaneous Approach (ICD-10-PCS; 2024-03-19)
PROC: 05H633Z Insertion of Infusion Device into Left Subclavian Vein, Percutaneous Approach (ICD-10-PCS; 2024-03-19)
PROC: B547ZZA Ultrasonography of Left Subclavian Vein, Guidance (ICD-10-PCS; 2024-03-19)
PROC: 05HC33Z Insertion of Infusion Device into Left Basilic Vein, Percutaneous Approach (ICD-10-PCS; principal; 2024-03-26)
PROC: B54NZZA Ultrasonography of Left Upper Extremity Veins, Guidance (ICD-10-PCS; 2024-03-26)
DX: A41.89 Other specified sepsis (principal); R65.21 Severe sepsis with septic shock; R57.1 Hypovolemic shock; A04.72 Enterocolitis due to Clostridium difficile, not specified as recurrent; R53.2 Functional quadriplegia; E86.0 Dehydration; D64.9 Anemia, unspecified; D69.6 Thrombocytopenia, unspecified; E87.0 Hyperosmolality and hypernatremia; F01.50 Vascular dementia, unspecified severity, without behavioral disturbance, psychotic disturbance, mood disturbance, and anxiety; L89.153 Pressure ulcer of sacral region, stage 3; E43 Unspecified severe protein-calorie malnutrition; N17.9 Acute kidney failure, unspecified; R68.0 Hypothermia, not associated with low environmental temperature; R64 Cachexia; Z68.1 Body mass index [BMI] 19.9 or less, adult; N40.0 Benign prostatic hyperplasia without lower urinary tract symptoms; N39.0 Urinary tract infection, site not specified; B96.20 Unspecified Escherichia coli [E. coli] as the cause of diseases classified elsewhere; I25.10 Atherosclerotic heart disease of native coronary artery without angina pectoris; E78.5 Hyperlipidemia, unspecified; I12.9 Hypertensive chronic kidney disease with stage 1 through stage 4 chronic kidney disease, or unspecified chronic kidney disease; E11.22 Type 2 diabetes mellitus with diabetic chronic kidney disease; N18.9 Chronic kidney disease, unspecified; W18.30XA Fall on same level, unspecified, initial encounter; Y92.129 Unspecified place in nursing home as the place of occurrence of the external cause; Y99.9 Unspecified external cause status; Z93.1 Gastrostomy status
CPT/HCPCS: 0241U-QW; 36415; 36430; 70450-TC; 71045-TC-FY; 72125-TC; 72170-TC-FY; 80048; 80053; 81003; 82550; 82553; 82728; 82803; 82962; 83540; 83550; 83605; 83735; 84100; 84484; 85025; 85027; 85384; 86850; 86900; 86901; 86922; 87040; 87086; 87186; 87324; 87449; 87493; 90656; 93005; 93010; 99285-25; G0008; J0131; J1644; P9038; P9058